=== PATIENT | female | born 1985 | race Caucasian/White ===

== ENCOUNTER 2016-08-18 18:56 | Emergency (ER) | payer OTHER ==
[2016-08-18] MEDS ORDERED: NS 0.9% 1000 ML* 1,000 ML IV ONE (19:34)
[2016-08-18 20:28] LABS: Hematocrit 36 % (35-47); Hemoglobin 11.5 g/dl (12.0-16.0); Mean Corpuscular HGB Conc 32 g/dl (31-36); Mean Corpuscular Hemoglobin 24 pg (27-31); Mean Corpuscular Volume 76 fL (80-97); Mean Platelet Volume 9 um3 (7.4-10.4); Red Blood Count 4.75 10^6/ul (4.0-5.4); Red Cell Distribution Width 14 % (10.5-15)
[2016-08-18] MEDS ORDERED: Butalb/Acetamin/Caff TAB* 1 TAB PO ONE (20:32)
[2016-08-18] MEDS ORDERED: SUMAtriptan SQ* 6 MG/0.5 ML VIAL SUBCUT ONE (20:32)
[2016-08-18] MEDS ORDERED: Ketorolac INJ* 30 MG/ML 1 ML VIAL IV ONE (20:32)
[2016-08-18] MEDS ORDERED: Ondansetron INJ* 2 MG/ML VIAL IV ONE (20:33)
[2016-08-18] MEDS ORDERED: cefTRIAXone(*) 2 GM in NS 0.9% 100 ML* 100 ML IVPB ONE (20:33)
[2016-08-18 20:40] LABS: Albumin 4.4 g/dL (3.2-5.2); BUN/Creatinine Ratio 15.5 (8-20); Calcium 9.5 mg/dL (8.6-10.3); EGFR African American 124.3 (>60); EGFR Non-African American 96.7 (>60); Globulin 3.7 g/dL (2-4); Potassium 3.6 mmol/L (3.5-5.0); Total Bilirubin 0.4 mg/dL (0.2-1.0); Total Protein 8.1 g/dL (6.4-8.9)
[2016-08-18] MEDS ORDERED: HYDROmorphone INJ* 1 MG/ML CARPUJECT SYRINGE ONE (20:53)
[2016-08-18] MEDS ORDERED: Dexamethasone IV* 4 MG in NS 0.9% 50 ML* 50 ML IVPB SCH (21:00)
[2016-08-18 21:12] LABS: EBV Response NO
[2016-08-18 21:18] LABS: Mono Internal Control QC Line Present
--- NOTE | 2016-08-18 22:49 | ED ---
Julianna Chawla Rebecca, scribed for John Collins MD on 08/18/16 at 2116 . Throat Pain/Nasal Congestion - HPI Summary HPI Summary: Pt is a 30 y/o F who presents to ED c/o throat pain and nasal congestion. Sx began 3 days ago and have been constant and worsening since onset. Pain is currently severe, ranked 8/10. Sx aggravated by swallowing, alleviated by nothing. Additionally c/o CORTEZ, fever, chills, lymphadenopthy, and nonproductive cough secondary to throat irritation. Denies chest congestion, V/D, and rash. PMHx migraines. Typically alleviated by Excedrin, which is not affecting sx this episode. Has treated with 2 doses of Excedrin today, with the last dose at 1500. SHx former smoker (quit 1 year ago). - History of Current Complaint Chief Complaint: EDUpperRespComplaint Time Seen by Provider: 08/18/16 19:34 Hx Obtained From: Patient Onset/Duration: Sudden Onset, Lasting Days - 3 days Associated Signs And Symptoms: Positive: Sinus Discomfort Cough: Nonproductive - Allergies/Home Medications Allergies/Adverse Reactions: Allergies Allergy/AdvReac Type Severity Reaction Status Date / Time Chocolate Allergy BUMPS ON Verified 05/01/15 17:25 SKIN PMH/Surg Hx/FS Hx/Imm Hx Endocrine/Hematology History: Reports: Hx Diabetes - on insulin, Hx Anemia - HX OF Denies: Hx Thyroid Disease Cardiovascular History: Denies: Hx Hypertension Respiratory History: Reports: Hx Sleep Apnea - ? WILL HAVE STUDY AFTER SURGERY Denies: Hx Asthma, Hx Chronic Obstructive Pulmonary Disease (COPD) GI History: Denies: Hx Ulcer History: Reports: Hx Kidney Stones - 2007 Sensory History: Denies: Hx Contacts or Glasses, Hx Hearing Aid Opthamlomology History: Denies: Hx Contacts or Glasses Neurological History: Reports: Hx Headaches - ALL THE TIME- TAKES TYLENOL FOR, Hx Migraine - HX OF Psychiatric History: Reports: Hx Anxiety - IN THE PAST, Hx Depression - IN THE PAST - Surgical History Surgery Procedure, Year, and Place: 2007 cholecystectomy. D&C. two abortions Hx Anesthesia Reactions: No - Immunization History Date of Tetanus Vaccine: unknown Date of Influenza Vaccine: never received Infectious Disease History: No Infectious Disease History: Denies: Hx Hepatitis, Hx Human Immunodeficiency Virus (HIV), Traveled Outside the [place] in Last 30 Days - Family History Known Family History: Negative: Cardiac Disease - Social History Alcohol Use: None Substance Use Type: Reports: None Smoking Status (MU): Former Smoker - Quit 1 year ago Type: Cigarettes Have You Smoked in the Last Year: Yes Review of Systems Positive: Fever, Chills Positive: Sore Throat, Other - Lymphadenopathy, nasal congestion Positive: Cough - nonproductive, secondary to throat irritation, Other - Deneis chest congestion Negative: Vomiting, Diarrhea Negative: Rash Positive: Headache All Other Systems Reviewed And Are Negative: Yes Physical Exam - Summary Physical Exam Summary: General: Obviously uncomfortable, pleasant, alert, currently has a CORTEZ. HEENT: Moist mucosa. Left TM pearly white, with no effusion. R TM no tragal or pinna tenderness. Purulent effusion on the right side of the throat. Uvula midline. No obvious abscess. Neck: There is right sided diffuse sub-mandibular and right neck tenderness with lymphadenopathy. They are not boggy, non-fluctuant. Heart: S1, S2, RRR, no murmurs, rubs, or gallops Lungs: Clear to auscultation, breathing comfortable, no wheezes or rales Abdominal: Soft, flat, nontender Extremities: No edema, no calf tenderness Neuro: Alert and oriented x 3 Psych: Logical, coherent Triage Information Reviewed: Yes Vital Signs On Initial Exam: Initial Vitals Temp Pulse Resp BP Pulse Ox 99.8 F 111 19 181/91 98 08/18/16 18:58 08/18/16 18:58 08/18/16 18:58 08/18/16 18:58 08/18/16 18:58 Vital Signs Reviewed: Yes Diagnostics - Vital Signs Vital Signs Temp Pulse Resp BP Pulse Ox 08/18/16 18:58 99.8 F 111 19 181/91 98 - Laboratory Lab Results: Lab Results 08/18/16 08/18/16 08/18/16 Range/Units 20:00 20:00 20:00 WBC 11.0 H (3.5-10.8) 10^3/ul RBC 4.75 (4.0-5.4) 10^6/ul Hgb 11.5 L (12.0-16.0) g/dl Hct 36 (35-47) % MCV 76 L (80-97) fL MCH 24 L (27-31) pg MCHC 32 (31-36) g/dl RDW 14 (10.5-15) % Plt Count 273 (150-450) 10^3/ul MPV 9 (7.4-10.4) um3 Neut % (Auto) 81.5 (38-83) % Lymph % (Auto) 10.1 L (25-47) % [place] % (Auto) 7.7 (1-9) % Eos % (Auto) 0.4 (0-6) % Baso % (Auto) 0.3 (0-2) % Absolute Neuts (auto) 9.0 H (1.5-7.7) 10^3/ul Absolute Lymphs (auto) 1.1 (1.0-4.8) 10^3/ul Absolute Monos (auto) 0.8 (0-0.8) 10^3/ul Absolute Eos (auto) 0 (0-0.6) 10^3/ul Absolute Basos (auto) 0 (0-0.2) 10^3/ul Absolute Nucleated RBC 0 10^3/ul Nucleated RBC % 0 Sodium 135 (133-145) mmol/L Potassium 3.6 (3.5-5.0) mmol/L Chloride 101 (101-111) mmol/L Carbon Dioxide 25 (22-32) mmol/L Anion Gap 9 (2-11) mmol/L BUN 11 (6-24) mg/dL Creatinine 0.71 (0.51-0.95) mg/dL Est GFR ( Amer) 124.3 (>60) Est GFR (Non-Af Amer) 96.7 (>60) BUN/Creatinine Ratio 15.5 (8-20) Glucose 120 H (70-100) mg/dL Lactic Acid 0.7 (0.5-2.0) mmol/L Calcium 9.5 (8.6-10.3) mg/dL Total Bilirubin 0.40 (0.2-1.0) mg/dL AST 12 L (13-39) U/L ALT 16 (7-52) U/L Alkaline Phosphatase 71 (34-104) U/L Troponin I 0.00 (<0.04) ng/mL B-Natriuretic Peptide ( - 100) pg/mL Total Protein 8.1 (6.4-8.9) g/dL Albumin 4.4 (3.2-5.2) g/dL Globulin 3.7 (2-4) g/dL Albumin/Globulin Ratio 1.2 (1-3) Monoscreen Pending 08/18/16 Range/Units 20:00 WBC (3.5-10.8) 10^3/ul RBC (4.0-5.4) 10^6/ul Hgb (12.0-16.0) g/dl Hct (35-47) % MCV (80-97) fL MCH (27-31) pg MCHC (31-36) g/dl RDW (10.5-15) % Plt Count (150-450) 10^3/ul MPV (7.4-10.4) um3 Neut % (Auto) (38-83) % Lymph % (Auto) (25-47) % [place] % (Auto) (1-9) % Eos % (Auto) (0-6) % Baso % (Auto) (0-2) % Absolute Neuts (auto) (1.5-7.7) 10^3/ul Absolute Lymphs (auto) (1.0-4.8) 10^3/ul Absolute Monos (auto) (0-0.8) 10^3/ul Absolute Eos (auto) (0-0.6) 10^3/ul Absolute Basos (auto) (0-0.2) 10^3/ul Absolute Nucleated RBC 10^3/ul Nucleated RBC % Sodium (133-145) mmol/L Potassium (3.5-5.0) mmol/L Chloride (101-111) mmol/L Carbon Dioxide (22-32) mmol/L Anion Gap (2-11) mmol/L BUN (6-24) mg/dL Creatinine (0.51-0.95) mg/dL Est GFR ( Amer) (>60) Est GFR (Non-Af Amer) (>60) BUN/Creatinine Ratio (8-20) Glucose (70-100) mg/dL Lactic Acid (0.5-2.0) mmol/L Calcium (8.6-10.3) mg/dL Total Bilirubin (0.2-1.0) mg/dL AST (13-39) U/L ALT (7-52) U/L Alkaline Phosphatase (34-104) U/L Troponin I (<0.04) ng/mL B-Natriuretic Peptide 67 ( - 100) pg/mL Total Protein (6.4-8.9) g/dL Albumin (3.2-5.2) g/dL Globulin (2-4) g/dL Albumin/Globulin Ratio (1-3) Monoscreen Result Diagrams: 08/18/16 20:00 08/18/16 20:00 Lab Statement: Any lab studies that have been ordered have been reviewed, and results considered in the medical decision making process. EENT Course/Dx - Course Assessment/Plan: She presents with 3 days of sore throat, congestion. On our exam, signs of a throat infection, possibly strep. She has a Hx of tonsillitis, but she has had her tonsils and adenoids removed. She has significantly adenopathy on the right side. We will add a [place] test. I dont see any dental abscess. There are no signs of Ludwigs angina. No signs of cellulitis or mastoiditis. This could very well be viral but given the exudate and adenopathy I think it is important that we prescribe Abx and steroids. She also has a significant CORTEZ, which we will treat aggressively. - Diagnoses Provider Diagnoses: Pharyngitis, Headache Discharge - Discharge Plan Condition: Fair Disposition: HOME Prescriptions: Amoxicillin/Clavulanate TAB* [Augmentin TAB 875*] 875 mg PO BID #20 tab Dexamethasone TAB* [Decadron TAB*] 4 mg PO BID #6 tab HYDROcodone/ACETAMIN 5-325 MG* [[place] 5-325 TAB*] 1 tab PO Q6H PRN #12 tab MDD 4 PRN Reason: Pain Patient Education Materials: Pharyngitis (ED), General Headache (ED) Referrals: Julito Amezquita MD [Primary Care Provider] - 1 Day The documentation as recorded by the Julianna saeed Rebecca accurately reflects the service I personally performed and the decisions made by me, John Collins MD.
[2016-08-19 03:25] VITALS: BP 117/73
== END 2016-08-18 22:30 | disposition home or self-care (01) ==
LOC: ED 18:56
DX: R51 Headache (principal); J02.9 Acute pharyngitis, unspecified; Z87.891 Personal history of nicotine dependence; E11.9 Type 2 diabetes mellitus without complications
CPT/HCPCS: 36415; 80053; 83605; 83880; 84484; 85025; 86308; 87040; 96360; 96372; 96374; 96375; 99283; A9270-GY; J0696; J1100; J1170; J1885; J2405; J3030

== ENCOUNTER 2018-06-14 18:44 | Observation (INO) | payer OTHER ==
[2018-06-14] MEDS ORDERED: NS 0.9% 1000 ML* 1,000 ML IV ONE ×2 (19:12→20:49)
[2018-06-14] MEDS ORDERED: Ondansetron INJ* 2 MG/ML VIAL IV ONE (19:12)
[2018-06-14] MEDS ORDERED: Ketorolac INJ* 30 MG/ML 1 ML VIAL IV PUSH ONE (19:42)
[2018-06-14 20:13] LABS: Hematocrit 36 % (35-47); Hemoglobin 11.6 g/dl (12.0-16.0); Mean Corpuscular HGB Conc 32 g/dl (31-36); Mean Corpuscular Hemoglobin 24 pg (27-31); Mean Corpuscular Volume 75 fL (80-97); Platelet Count 106 10^3/ul (150-450); Red Blood Count 4.81 10^6/ul (4.00-5.40); Red Cell Distribution Width 15 % (10.5-15); White Blood Count 1.4 10^3/ul (3.5-10.8)
[2018-06-14 20:32] LABS: EGFR Non-African American 58.8 (>60)
[2018-06-14] MEDS ORDERED: Potassium Chlor TAB* 20 MEQ TAB.ER PO ONE (20:49)
[2018-06-14 21:00] LABS: Monocytes % 2 %
[2018-06-14 21:06] LABS: ABS Neutrophils 1.1 10^3/ul (1.5-7.7)
[2018-06-14 22:00] LABS: Urine Appearance Cloudy; Urine Blood 2+ (Negative); Urine Color Yellow; Urine Ketones Trace (Negative); Urine Protein 1+(30 mg/dL) (Negative); Urine Red Blood Cell 1+(3-5/hpf) (Absent); Urine Specific Gravity 1.023 (1.010-1.030); Urine Urobilinogen Negative (Negative); Urine White Blood Cell 2+(11-20/hpf) (Absent)
[2018-06-14 22:01] LABS: Immature Retic Fraction 0.29; RBC Retic Count 4.84 10^6/ul (4.6-6.2)
[2018-06-14 22:06] LABS: Corrected Retic Count 0.4 % (0.5-1.5); Hematocrit for Retic CNT 36 % (35-47)
[2018-06-14] MEDS ORDERED: cefTRIAXone(*) 1 GM in NS 0.9% 50 ML* 50 ML IVPB ONE (23:13)
[2018-06-15] MEDS ORDERED: Acetaminophen TAB* 325 MG PO ONE (00:28)
[2018-06-15] MEDS ORDERED: Lidocaine 2% EPI 1:200000 MPF*10-20 ML VIAL ONE (01:13)
[2018-06-15] MEDS ORDERED: cefTRIAXone(*) 1 GM in NS 0.9% 50 ML* 50 ML IVPB ONE (01:15)
[2018-06-15] MEDS ORDERED: Vancomycin(*) 1,000 MG in NS 0.9% 250 ML* 250 ML IVPB ONE (01:16)
[2018-06-15] MEDS ORDERED: Dextrose 50% Syringe 50 ML* 25 GM/50 ML SYRINGE IV PUSH PRN (01:19)
[2018-06-15] MEDS ORDERED: oxyCODONE/Acetamin 5/325 MG* TAB PO PRN (01:33)
[2018-06-15] MEDS ORDERED: Al Hydrox/Mg Hydrox/Simet LIQ* 30 ML UDC PO PRN (01:33)
[2018-06-15] MEDS ORDERED: Acetaminophen TAB* 325 MG PO PRN (01:33)
[2018-06-15] MEDS ORDERED: NS 0.9% 1000 ML* 1,000 ML IV ONE (02:00)
--- NOTE | 2018-06-15 02:10 | PN ---
Progress Note - Progress Note Date of Service: 06/15/18 Note: I performed a spinal tap for the PA Dom Gross. Informed consent. Tap was performed in sitting position. The patient was given lidocaine 2% for local anesthesia. We did use 20 gauge spinal and entered in L4-L5 4 tubes of clear CSF obtained. Procedure tolerated well.
[2018-06-15 02:29] LABS: Body Fluid Source Cerebral Spinal
--- NOTE | 2018-06-15 02:42 | ED ---
Influenza-Like Illness - HPI Summary HPI Summary: Patient complains of flulike symptoms including chills, N/V/D, body aches, frontal headache, neck stiffness, subjective fever 4 days. Denies CP, cough, sore throat, ear pain, nasal congestion, CP, SOB, abdominal pain, change in urine, change in BM, vaginal symptoms, . Medical history is DM 2. Patient states she has not been taking her metformin for 2 weeks, and has been unable to check her blood sugar as glucometer no longer functioning. - History of Current Complaint Chief Complaint: EDFluSymptoms Time Seen by Provider: 06/14/18 19:09 Hx Obtained From: Patient Onset/Duration: Gradual Onset Severity: Moderate Associated Signs & Symptoms: Fever, Myalgia, Cough, Headache, Vomiting, Diarrhea - Allergy/Home Medications Allergies/Adverse Reactions: Allergies Allergy/AdvReac Type Severity Reaction Status Date / Time No Known Allergies Allergy Verified 06/14/18 19:06 PMH/Surg Hx/FS Hx/Imm Hx Endocrine/Hematology History: Reports: Hx Diabetes - on insulin, Hx Anemia - HX OF Denies: Hx Thyroid Disease Cardiovascular History: Denies: Hx Hypertension Respiratory History: Reports: Hx Sleep Apnea - ? WILL HAVE STUDY AFTER SURGERY Denies: Hx Asthma, Hx Chronic Obstructive Pulmonary Disease (COPD) GI History: Denies: Hx Ulcer History: Reports: Hx Kidney Stones - 2007 Sensory History: Denies: Hx Contacts or Glasses, Hx Hearing Aid Opthamlomology History: Denies: Hx Contacts or Glasses Neurological History: Reports: Hx Headaches - ALL THE TIME- TAKES TYLENOL FOR, Hx Migraine - HX OF Psychiatric History: Reports: Hx Anxiety - IN THE PAST, Hx Depression - IN THE PAST - Surgical History Surgery Procedure, Year, and Place: 2007 cholecystectomy. D&C. two abortions Hx Anesthesia Reactions: No - Immunization History Date of Tetanus Vaccine: unknown Date of Influenza Vaccine: never received Infectious Disease History: No Infectious Disease History: Denies: Hx Hepatitis, Hx Human Immunodeficiency Virus (HIV), Traveled Outside the [place] in Last 30 Days - Family History Known Family History: Negative: Cardiac Disease - Social History Alcohol Use: None Substance Use Type: Reports: None Substance Use Comment - Amount & Last Used: MARIJUANNA USE- LAST A COUPLE OF WEEKS AGO Hx Tobacco Use: Yes Smoking Status (MU): Light Every Day Tobacco Smoker Type: Cigarettes Amount Used/How Often: 1/2 PPD X 14 YEARS Have You Smoked in the Last Year: Yes Review of Systems Positive: Fever, Chills Eyes: Negative ENT: Negative Cardiovascular: Negative Respiratory: Negative Positive: Vomiting, Diarrhea, Nausea Genitourinary: Negative Positive: Myalgia Skin: Negative Positive: Headache Psychological: Normal All Other Systems Reviewed And Are Negative: Yes Physical Exam - Summary Physical Exam Summary: Negative Kernig's and Brudzinski. Neuro exam normal. Physical exam otherwise unremarkable. Triage Information Reviewed: Yes Vital Signs On Initial Exam: Initial Vitals Temp Pulse Resp BP Pulse Ox 99.8 F 86 21 112/62 94 06/14/18 19:00 06/14/18 19:00 06/14/18 19:00 06/14/18 19:00 06/14/18 19:00 Vital Signs Reviewed: Yes Appearance: Positive: Well-Appearing Skin: Positive: Warm Head/Face: Positive: Normal Head/Face Inspection Eyes: Positive: Normal ENT: Positive: Normal ENT inspection Neck: Positive: Supple Respiratory/Lung Sounds: Positive: Clear to Auscultation Cardiovascular: Positive: Normal Abdomen Description: Positive: Nontender Musculoskeletal: Positive: Normal Neurological: Positive: Normal Psychiatric: Positive: Normal AVPU Assessment: Alert - Maia Coma Scale Best Eye Response: 4 - Spontaneous Best Motor Response: 6 - Obeys Commands Best Verbal Response: 5 - Oriented Coma Scale Total: 15 Diagnostics - Vital Signs Vital Signs Temp Pulse Resp BP Pulse Ox 06/15/18 02:12 73 18 128/70 94 06/15/18 02:01 72 25 108/43 93 06/15/18 02:00 74 18 90 06/15/18 01:57 75 25 109/49 91 06/15/18 01:42 20 06/15/18 01:40 85 23 96 06/15/18 00:32 87 32 110/66 96 06/15/18 00:01 73 19 100/57 94 06/15/18 00:00 77 13 94 06/14/18 23:31 77 27 117/62 97 06/14/18 23:19 99.9 F 06/14/18 23:07 80 16 95 06/14/18 23:01 79 17 118/67 96 06/14/18 23:00 75 15 97 12/04/18 22:31 77 19 106/75 95 06/14/18 22:01 15 105/53 06/14/18 22:00 23 06/14/18 21:42 100.8 F 06/14/18 21:31 16 123/65 06/14/18 21:01 26 133/65 06/14/18 21:00 20 06/14/18 20:55 100.4 F 20 112/67 06/14/18 20:01 20 104/66 06/14/18 20:00 19 06/14/18 19:31 82 23 102/70 96 06/14/18 19:01 88 21 112/62 94 06/14/18 19:00 99.8 F 85 17 112/62 95 - Laboratory Lab Results: Lab Results 06/14/18 06/14/18 06/14/18 Range/Units 19:44 19:44 19:44 WBC 1.4 L (3.5-10.8) 10^3/ul RBC 4.81 (4.00-5.40) 10^6/ul RBC (Retic) 4.84 (4.6-6.2) 10^6/ul Hgb 11.6 L (12.0-16.0) g/dl Hct 36 (35-47) % HCT (Retic) 36 (35-47) % MCV 75 L (80-97) fL MCH 24 L (27-31) pg MCHC 32 (31-36) g/dl RDW 15 (10.5-15) % Plt Count 106 L (150-450) 10^3/ul MPV 9.0 (7.4-10.4) fL Neut % (Auto) Not Reportable Lymph % (Auto) Not Reportable [place] % (Auto) Not Reportable Eos % (Auto) Not Reportable Baso % (Auto) Not Reportable Absolute Neuts (auto) Not Reportable Absolute Lymphs (auto) Not Reportable Absolute Monos (auto) Not Reportable Absolute Eos (auto) Not Reportable Absolute Basos (auto) Not Reportable Absolute Nucleated RBC Not Reportable Immature Gran % 29 H (0-9) % Neutrophils % 46 % Band Neutrophils % 29 H (0-8) % Lymphocytes % 22 % Reactive Lymphs % 1 (0-6) % Monocytes % 2 % Nucleated RBC % Not Reportable Abs Neuts (Manual) 1.1 L (1.5-7.7) 10^3/ul Abs Lymphs (Manual) 0.3 L (1.0-4.8) 10^3/ul Normal RBC Morphology Normal (Normal) Retic Count, Calc 0.5 (0.5-1.5) % Corrected Retic Count 0.4 L (0.5-1.5) % Retic Shift Factor 1.5 Retic Production Index 0.30 Immature Retic Fraction 0.29 Mean Retic Volume 92.5 Hem Pathologist Commnt Pending VBG pH (7.33-7.43) VBG pCO2 (41-51) mmHg VBG pO2 (35-45) mmHg VBG HCO3 (24-28) mmol/L VBG O2 Saturation (70-80) % VBG Base Excess (0-4) Sodium 137 (135-145) mmol/L Potassium 3.1 L (3.5-5.0) mmol/L Chloride 105 (101-111) mmol/L Carbon Dioxide 22 (22-32) mmol/L Anion Gap 10 (2-11) mmol/L BUN 18 (6-24) mg/dL Creatinine 1.08 H (0.51-0.95) mg/dL Est GFR ( Amer) 71.1 (>60) Est GFR (Non-Af Amer) 58.8 (>60) BUN/Creatinine Ratio 16.7 (8-20) Glucose 116 H (70-100) mg/dL Lactic Acid 0.8 (0.5-2.0) mmol/L Calcium 8.5 L (8.6-10.3) mg/dL Total Bilirubin 0.30 (0.2-1.0) mg/dL AST 56 H (13-39) U/L ALT 41 (7-52) U/L Alkaline Phosphatase 46 (34-104) U/L C-Reactive Protein 4.93 (<8.01) mg/L Total Protein 7.0 (6.4-8.9) g/dL Albumin 4.0 (3.2-5.2) g/dL Globulin 3.0 (2-4) g/dL Albumin/Globulin Ratio 1.3 (1-3) Beta HCG, Quant < 0.60 mIU/mL Urine Color Urine Appearance Urine pH (5-9) Ur Specific [place] (1.010-1.030) Urine Protein (Negative) Urine Ketones (Negative) Urine Blood (Negative) Urine Nitrate (Negative) Urine Bilirubin (Negative) Urine Urobilinogen (Negative) Ur Leukocyte Esterase (Negative) Urine WBC (Auto) (Absent) Urine RBC (Auto) (Absent) Ur Squamous Epith Cells (Absent) Urine Bacteria (Absent) Hyaline Casts (Absent) Granular Casts (Absent) Urine Glucose (Negative) Monoscreen Negative (Negative) Influenza A (Rapid) (Negative) Influenza B (Rapid) (Negative) 06/14/18 06/14/18 06/14/18 Range/Units 19:59 21:03 21:28 WBC (3.5-10.8) 10^3/ul RBC (4.00-5.40) 10^6/ul RBC (Retic) (4.6-6.2) 10^6/ul Hgb (12.0-16.0) g/dl Hct (35-47) % HCT (Retic) (35-47) % MCV (80-97) fL MCH (27-31) pg MCHC (31-36) g/dl RDW (10.5-15) % Plt Count (150-450) 10^3/ul MPV (7.4-10.4) fL Neut % (Auto) Lymph % (Auto) [place] % (Auto) Eos % (Auto) Baso % (Auto) Absolute Neuts (auto) Absolute Lymphs (auto) Absolute Monos (auto) Absolute Eos (auto) Absolute Basos (auto) Absolute Nucleated RBC Immature Gran % (0-9) % Neutrophils % % Band Neutrophils % (0-8) % Lymphocytes % % Reactive Lymphs % (0-6) % Monocytes % % Nucleated RBC % Abs Neuts (Manual) (1.5-7.7) 10^3/ul Abs Lymphs (Manual) (1.0-4.8) 10^3/ul Normal RBC Morphology (Normal) Retic Count, Calc (0.5-1.5) % Corrected Retic Count (0.5-1.5) % Retic Shift Factor Retic Production Index Immature Retic Fraction Mean Retic Volume Hem Pathologist Commnt VBG pH 7.42 (7.33-7.43) VBG pCO2 35 L (41-51) mmHg VBG pO2 42 (35-45) mmHg VBG HCO3 23.4 L (24-28) mmol/L VBG O2 Saturation 77.0 (70-80) % VBG Base Excess -1.3 L (0-4) Sodium (135-145) mmol/L Potassium (3.5-5.0) mmol/L Chloride (101-111) mmol/L Carbon Dioxide (22-32) mmol/L Anion Gap (2-11) mmol/L BUN (6-24) mg/dL Creatinine (0.51-0.95) mg/dL Est GFR ( Amer) (>60) Est GFR (Non-Af Amer) (>60) BUN/Creatinine Ratio (8-20) Glucose (70-100) mg/dL Lactic Acid (0.5-2.0) mmol/L Calcium (8.6-10.3) mg/dL Total Bilirubin (0.2-1.0) mg/dL AST (13-39) U/L ALT (7-52) U/L Alkaline Phosphatase (34-104) U/L C-Reactive Protein (<8.01) mg/L Total Protein (6.4-8.9) g/dL Albumin (3.2-5.2) g/dL Globulin (2-4) g/dL Albumin/Globulin Ratio (1-3) Beta HCG, Quant mIU/mL Urine Color Yellow Urine Appearance Cloudy Urine pH 5.0 (5-9) Ur Specific [place] 1.023 (1.010-1.030) Urine Protein 1+(30 mg/dl) A (Negative) Urine Ketones Trace A (Negative) Urine Blood 2+ A (Negative) Urine Nitrate Negative (Negative) Urine Bilirubin Negative (Negative) Urine Urobilinogen Negative (Negative) Ur Leukocyte Esterase 2+ A (Negative) Urine WBC (Auto) 2+(11-20/hpf) A (Absent) Urine RBC (Auto) 1+(3-5/hpf) A (Absent) Ur Squamous Epith Cells Present A (Absent) Urine Bacteria 1+ A (Absent) Hyaline Casts Present A (Absent) Granular Casts Present A (Absent) Urine Glucose Negative (Negative) Monoscreen (Negative) Influenza A (Rapid) Negative (Negative) Influenza B (Rapid) Negative (Negative) Result Diagrams: 06/14/18 19:44 06/14/18 19:44 Lab Statement: Any lab studies that have been ordered have been reviewed, and results considered in the medical decision making process. Flu Symptom Course/Dx - Course Course Of Treatment: Patient complains of flulike symptoms including chills, N/V /D, body aches, frontal headache, neck stiffness, subjective fever 4 days. Denies CP, cough, sore throat, ear pain, nasal congestion, CP, SOB, abdominal pain, change in urine, change in BM, vaginal symptoms, . Medical history is DM 2. Patient states she has not been taking her metformin for 2 weeks, and has been unable to check her blood sugar as glucometer no longer functioning. Physical exam:Negative Kernig's and Brudzinski. Neuro exam normal. Physical exam otherwise unremarkable. Fever to 100.8, vital signs otherwise unremarkable. White count 1.4. Platelet count 106. Absolute neutrophil count 1.1. Corrected reticulocyte count 0.4. Borderline neutropenic. Creatinine 1.08. Chest x-ray negative. Positive for UTI. Patient given 2 L of normal saline. 1 g Rocephin. Admitted to the hospitalist - Diagnoses Provider Diagnoses: Flu-like symptoms, Neutropenia, UTI (urinary tract infection) Discharge - Sign-Out/Discharge Documenting (check all that apply): Patient Departure - Discharge Plan Condition: Stable Disposition: ADMITTED TO [facility] Referrals: Julito Amezquita MD [Primary Care Provider] - - Billing Disposition and Condition Condition: STABLE Disposition: Admitted to [facility]
[2018-06-15] MEDS ORDERED: Acyclovir IV(*) 600 MG in NS 0.9% 100 ML* 100 ML IVPB SCH ×2 (03:00→05:30)
[2018-06-15] MEDS: Ondansetron INJ* 2 MG/ML VIAL IV PRN ×3 (03:42→15:59)
[2018-06-15] MEDS: NS 0.9% 1000 ML* 1,000 ML IV SCH (03:45)
[2018-06-15] MEDS ORDERED: Vancomycin(*) 1,000 MG in NS 0.9% 250 ML* 250 ML IVPB SCH (04:00)
[2018-06-15 07:35] LABS: EGFR Non-African American 73.5 (>60)
--- NOTE | 2018-06-15 07:47 | HP ---
HISTORY AND PHYSICAL: DATE OF ADMISSION: 06/15/18 TIME OF EVALUATION: 0100. The patient does not have a primary care physician. CHIEF COMPLAINT: Nausea, vomiting, fever, and headache. HISTORY OF PRESENT ILLNESS: This is a 32-year-old female with a past medical history of diabetes who presents to the emergency room after having 4 to 5 days of nausea, vomiting, watery diarrhea, fever, and headache. She developed the epigastric pain after she has been persistently vomiting. She has been unable to keep anything down. She is trying to tolerate ice chips at this time. She has a frontal headache and a significant neck pain, unable to flex her neck. She states her whole body hurts including her gums are swollen. She has had a mild cough, no congestion. She states subjective fever at home with chills. No urinary symptoms. No rash. No sick contacts. She denies any tick bite exposure. She states she is not outside very often at all. There is no recent travel, no recent antibiotic use. She does state she has a recent cold sore on her lip that is now resolving. Otherwise, review of systems is negative. In emergency room, the patient had labs and imaging. She was given a gram of ceftriaxone, 2 L of fluid, potassium chloride, and Toradol and referred to the hospitalist service for further evaluation. PAST MEDICAL HISTORY: 1. Diabetes. 2. GERD. 3. Anxiety. MEDICATIONS: 1. Metformin 500 mg p.o. b.i.d. 2. Citalopram unsure of dose daily. 3. Omeprazole 20 mg daily. 4. Vitamin D daily. ALLERGIES: No known drug allergies. FAMILY HISTORY: Mother is still alive; she does have diabetes and hypertension. Father from an overdose. SOCIAL HISTORY: The patient stays at home. She is a single mom. She has 3 children. Her 3-year-old is disabled, which makes it hard for her to get to her primary care physician office, which they have since fired her. She smokes 5 cigarettes per day off and on for several years. No alcohol or illicit drug use. Her healthcare proxy is her mother and her sister. Code status is full code. REVIEW OF SYSTEMS: A 14-point review of systems as mentioned in the HPI, otherwise negative. PHYSICAL EXAMINATION GENERAL: Mildly ill-appearing, sitting up in the bed. VITALS: T-max 100.8, pulse rate of 77, respiratory rate 19, oxygen saturation 94% on room air, blood pressure 100/54. HEENT: Head normocephalic. Pupils are equal and reactive. Conjunctivae mildly injected. Oropharynx: Mucous membranes are dry. NECK: Supple. No appreciative adenopathy. She does have nuchal rigidity and tenderness of her posterior neck and resists to neck flexion. RESPIRATORY: Diminished breath sounds. No wheezes, rhonchi, or rales. CARDIAC: Regular rate and rhythm. Systolic murmur most prominent to the left sternal base. ABDOMEN: Soft, nontender, nondistended. EXTREMITIES: No clubbing, cyanosis, or edema. +1 DPs. NEUROLOGIC: Alert and oriented x3. No gross focal neurologic deficits. DERM: She does have a faint blanching maculopapular rash on the upper posterior torso. LABORATORY DATA: White count 1.4, hemoglobin 11.6, hematocrit 36, platelets 106. She has 29% immature granulocytes, 29% bands. Sodium 137, potassium 3.1, chloride 105, bicarb 22, BUN 18, creatinine 1.08. AST of 56. Lactic acid 0.8. Urinalysis shows +1 protein, trace ketones, +2 blood, squamous cells are present. Flu is negative. RADIOGRAPHIC DATA: Some mildly prominent perihilar markings on wet read. ASSESSMENT: This is a 32-year-old female with past medical history of diabetes who presents to the emergency room with nausea, vomiting, diarrhea, fever and neck pain. 1. The patient is moderately ill-appearing with nuchal rigidity in the setting of fever, bandemia, and immature granulocytes and pancytopenic. I am concerned for meningitis, could be viral meningitis, or herpes simplex virus encephalitis. Concerning for a viral process for her pancytopenia. Plan: We will talk to the ER about obtaining an LP. With her nausea and vomiting, I am going to order a head CT first, going to add another gram of ceftriaxone, start her on vancomycin and acyclovir until her LP comes back. Going to have them send for HSV. We will add on serum as well as HIV , EBV, and CMV titers as well as a Monospot. Continue IV fluids and antibiotics. Follow up on cultures. Consider ID consultation. 2. Pancytopenic patient with also bandemia, immature granulocytes, and mild neutropenia could be all related to an infectious etiology. Plan: We will repeat her labs in the morning, recommend pathology to review the smear, and consider hematology consultation if no improvement in her lab workup. CHRONIC MEDICAL PROBLEMS: 1. Diabetes. Placed on lispro and hold her metformin. 2. Depression and anxiety. Continue citalopram at the low dose as we do not know her dose. 3. Gastroesophageal reflux disease. Continue her omeprazole. 4. Fluids, electrolytes, nutrition: Place her on a regular diet and IV fluids. 5. DVT prophylaxis: The patient scores low risk. We will encourage ambulation. TIME SPENT: Greater than 45 minutes spent doing the history and physical and the half the time spent in direct patient contact. [id number]/[facility] #: [id number] BISHOP
[2018-06-15] MEDS: PROCHLORPERAZINE INJ 5 MG/ML 2 ML VIAL IV PRN ×3 (08:04→20:39)
[2018-06-15] MEDS: Ketorolac INJ* 15 MG/ML 1 ML VIAL IV PUSH PRN ×2 (08:04→10:10)
[2018-06-15 08:43] LABS: ABS Basophils 0 10^3/ul (0-0.2); ABS Eosinophils 0 10^3/ul (0-0.6); ABS Lymphocytes 0.4 10^3/ul (1.0-4.8); ABS Monocytes 0.1 10^3/ul (0-0.8); ABS Neutrophils 0.6 10^3/ul (1.5-7.7); ABS Nucleated RBC 0 10^3/ul; Eosinophil % 0 %; Hematocrit 33 % (35-47); Hemoglobin 10.8 g/dl (12.0-16.0); Lymphocyte % 38.4 %; Mean Corpuscular HGB Conc 33 g/dl (31-36); Mean Corpuscular Hemoglobin 24 pg (27-31); Mean Corpuscular Volume 74 fL (80-97); Mean Platelet Volume 9.1 fL (7.4-10.4); Nucleated Red Blood Cells % 0.6; Platelet Count 75 10^3/ul (150-450); Red Blood Count 4.43 10^6/ul (4.00-5.40); Red Cell Distribution Width 15 % (10.5-15)
[2018-06-15] MEDS: Insulin LISPRO* 1 UNITS UNIT SUBCUT SCH ×3 (09:56→17:56)
[2018-06-15] MEDS: Citalopram TAB* 10 MG PO SCH (09:57)
[2018-06-15] MEDS: Omeprazole CAP* 20 MG PO SCH (09:57)
[2018-06-15] MEDS ORDERED: cefTRIAXone(*) 1 GM in NS 0.9% 50 ML* 50 ML IVPB SCH (13:00)
[2018-06-15] MEDS ORDERED: cefTRIAXone(*) 2 GM in NS 0.9% 100 ML* 100 ML IVPB SCH (13:00)
--- NOTE | 2018-06-15 14:27 | PN ---
Subjective Date of Service: 06/15/18 Interval History: Pt still with headache and severe nausea and generalized dyspepsia. She says the torodol does help her headache, but it wears off. She says her stomach is growling and she would like to try eating some crackers. Her neck pain has improved and her diarrhea has resolved. Denies chest pain, shortness of breath, flank pain, dysuria, urinary frequency. Objective Active Medications: Acetaminophen (Tylenol Tab*) 650 mg PO Q4H PRN PRN Reason: FEVER/PAIN Al Hydrox/Mg Hydrox/Simethicone (Maalox Plus*) 30 ml PO Q6H PRN PRN Reason: INDIGESTION Citalopram Hydrobromide (Celexa Tab*) 10 mg PO DAILY [facility] Last Admin: 06/15/18 09:57 Dose: Not Given Dextrose (D50w Syringe 50 Ml*) 12.5 gm IV PUSH .FOR FS < 60 - SS PRN PRN Reason: FS < 60 Sodium Chloride (Ns 0.9% 1000 Ml*) 1,000 mls @ 150 mls/hr IV PER RATE [facility] Last Admin: 06/15/18 03:45 Dose: 150 mls/hr Ceftriaxone Sodium 1 gm/ (Sodium Chloride) 50 mls @ 200 mls/hr IVPB Q24H [facility] Last Admin: 06/15/18 14:00 Dose: 200 mls/hr Insulin Human Lispro (Humalog*) 0 units [facility]; Protocol Last Admin: 06/15/18 13:21 Dose: Not Given Ketorolac Tromethamine (Toradol Inj*) 30 mg IV PUSH Q6H PRN PRN Reason: PAIN Omeprazole (Prilosec Cap*) 20 mg PO 0730 [facility] Last Admin: 06/15/18 09:57 Dose: Not Given Ondansetron HCl (Zofran Inj*) 4 mg IV Q4H PRN PRN Reason: NAUSEA/VOMITING Last Admin: 06/15/18 10:10 Dose: 4 mg Oxycodone/Acetaminophen (Percocet 5/325 Tab*) 1 tab PO Q4H PRN PRN Reason: Pain Last Admin: 06/15/18 03:42 Dose: 1 tab Prochlorperazine Edisylate (Compazine Inj*) 5 mg IV Q6H PRN PRN Reason: NAUSEA/VOMITING Last Admin: 06/15/18 14:00 Dose: 5 mg Vital Signs - 8 hr 06/15/18 06/15/18 08:00 11:43 Temperature 98.2 F 99.0 F Pulse Rate 86 70 Respiratory 20 18 Rate Blood Pressure 135/68 122/64 (mmHg) O2 Sat by Pulse 96 93 Oximetry Oxygen Devices in Use Now: None Eyes: No Scleral Icterus Ears/Nose/Mouth/Throat: NL Teeth, Lips, Gums, Mucous Membranes Moist Neck: NL Appearance and Movements; NL JVP, Trachea Midline Respiratory: Symmetrical Chest Expansion and Respiratory Effort, Clear to Auscultation Cardiovascular: NL Sounds; No Murmurs; No JVD, RRR, No Edema Abdominal: NL Sounds; No Tenderness; No Distention Extremities: No Edema, No Clubbing, Cyanosis Skin: No Rash or Ulcers Neurological: Alert and Oriented x 3 Lines/Tubes/Other Access: Clean, Dry and Intact Peripheral IV Result Diagrams: 06/15/18 06:18 06/15/18 06:18 Additional Lab and Data: Lab Results 06/14/18 06/14/18 06/14/18 Range/Units 19:44 19:44 19:44 WBC 1.4 L (3.5-10.8) 10^3/ul RBC 4.81 (4.00-5.40) 10^6/ul RBC (Retic) 4.84 (4.6-6.2) 10^6/ul Hgb 11.6 L (12.0-16.0) g/dl Hct 36 (35-47) % HCT (Retic) 36 (35-47) % MCV 75 L (80-97) fL MCH 24 L (27-31) pg MCHC 32 (31-36) g/dl RDW 15 (10.5-15) % Plt Count 106 L (150-450) 10^3/ul MPV 9.0 (7.4-10.4) fL Neut % (Auto) Not Reportable Lymph % (Auto) Not Reportable Milam % (Auto) Not Reportable Eos % (Auto) Not Reportable Baso % (Auto) Not Reportable Absolute Neuts (auto) Not Reportable Absolute Lymphs (auto) Not Reportable Absolute Monos (auto) Not Reportable Absolute Eos (auto) Not Reportable Absolute Basos (auto) Not Reportable Absolute Nucleated RBC Not Reportable Immature Gran % 29 H (0-9) % Neutrophils % 46 % Band Neutrophils % 29 H (0-8) % Lymphocytes % 22 % Reactive Lymphs % 1 (0-6) % Monocytes % 2 % Nucleated RBC % Not Reportable Abs Neuts (Manual) 1.1 L (1.5-7.7) 10^3/ul Abs Lymphs (Manual) 0.3 L (1.0-4.8) 10^3/ul Normal RBC Morphology Normal (Normal) Retic Count, Calc 0.5 (0.5-1.5) % Corrected Retic Count 0.4 L (0.5-1.5) % Retic Shift Factor 1.5 Retic Production Index 0.30 Immature Retic Fraction 0.29 Mean Retic Volume 92.5 Hem Pathologist Commnt Pending VBG pH (7.33-7.43) VBG pCO2 (41-51) mmHg VBG pO2 (35-45) mmHg VBG HCO3 (24-28) mmol/L VBG O2 Saturation (70-80) % VBG Base Excess (0-4) Sodium 137 (135-145) mmol/L Potassium 3.1 L (3.5-5.0) mmol/L Chloride 105 (101-111) mmol/L Carbon Dioxide 22 (22-32) mmol/L Anion Gap 10 (2-11) mmol/L BUN 18 (6-24) mg/dL Creatinine 1.08 H (0.51-0.95) mg/dL Est GFR ( Amer) 71.1 (>60) Est GFR (Non-Af Amer) 58.8 (>60) BUN/Creatinine Ratio 16.7 (8-20) Glucose 116 H (70-100) mg/dL Lactic Acid 0.8 (0.5-2.0) mmol/L Calcium 8.5 L (8.6-10.3) mg/dL Total Bilirubin 0.30 (0.2-1.0) mg/dL AST 56 H (13-39) U/L ALT 41 (7-52) U/L Alkaline Phosphatase 46 (34-104) U/L C-Reactive Protein 4.93 (<8.01) mg/L Total Protein 7.0 (6.4-8.9) g/dL Albumin 4.0 (3.2-5.2) g/dL Globulin 3.0 (2-4) g/dL Albumin/Globulin Ratio 1.3 (1-3) Beta HCG, Quant < 0.60 mIU/mL Urine Color Urine Appearance Urine pH (5-9) Ur Specific Ragland (1.010-1.030) Urine Protein (Negative) Urine Ketones (Negative) Urine Blood (Negative) Urine Nitrate (Negative) Urine Bilirubin (Negative) Urine Urobilinogen (Negative) Ur Leukocyte Esterase (Negative) Urine WBC (Auto) (Absent) Urine RBC (Auto) (Absent) Ur Squamous Epith Cells (Absent) Urine Bacteria (Absent) Hyaline Casts (Absent) Granular Casts (Absent) Urine Glucose (Negative) Monoscreen Negative (Negative) Influenza A (Rapid) (Negative) Influenza B (Rapid) (Negative) 06/14/18 06/14/18 06/14/18 Range/Units 19:59 21:03 21:28 WBC (3.5-10.8) 10^3/ul RBC (4.00-5.40) 10^6/ul RBC (Retic) (4.6-6.2) 10^6/ul Hgb (12.0-16.0) g/dl Hct (35-47) % HCT (Retic) (35-47) % MCV (80-97) fL MCH (27-31) pg MCHC (31-36) g/dl RDW (10.5-15) % Plt Count (150-450) 10^3/ul MPV (7.4-10.4) fL Neut % (Auto) Lymph % (Auto) Milam % (Auto) Eos % (Auto) Baso % (Auto) Absolute Neuts (auto) Absolute Lymphs (auto) Absolute Monos (auto) Absolute Eos (auto) Absolute Basos (auto) Absolute Nucleated RBC Immature Gran % (0-9) % Neutrophils % % Band Neutrophils % (0-8) % Lymphocytes % % Reactive Lymphs % (0-6) % Monocytes % % Nucleated RBC % Abs Neuts (Manual) (1.5-7.7) 10^3/ul Abs Lymphs (Manual) (1.0-4.8) 10^3/ul Normal RBC Morphology (Normal) Retic Count, Calc (0.5-1.5) % Corrected Retic Count (0.5-1.5) % Retic Shift Factor Retic Production Index Immature Retic Fraction Mean Retic Volume Hem Pathologist Commnt VBG pH 7.42 (7.33-7.43) VBG pCO2 35 L (41-51) mmHg VBG pO2 42 (35-45) mmHg VBG HCO3 23.4 L (24-28) mmol/L VBG O2 Saturation 77.0 (70-80) % VBG Base Excess -1.3 L (0-4) Sodium (135-145) mmol/L Potassium (3.5-5.0) mmol/L Chloride (101-111) mmol/L Carbon Dioxide (22-32) mmol/L Anion Gap (2-11) mmol/L BUN (6-24) mg/dL Creatinine (0.51-0.95) mg/dL Est GFR ( Amer) (>60) Est GFR (Non-Af Amer) (>60) BUN/Creatinine Ratio (8-20) Glucose (70-100) mg/dL Lactic Acid (0.5-2.0) mmol/L Calcium (8.6-10.3) mg/dL Total Bilirubin (0.2-1.0) mg/dL AST (13-39) U/L ALT (7-52) U/L Alkaline Phosphatase (34-104) U/L C-Reactive Protein (<8.01) mg/L Total Protein (6.4-8.9) g/dL Albumin (3.2-5.2) g/dL Globulin (2-4) g/dL Albumin/Globulin Ratio (1-3) Beta HCG, Quant mIU/mL Urine Color Yellow Urine Appearance Cloudy Urine pH 5.0 (5-9) Ur Specific Ragland 1.023 (1.010-1.030) Urine Protein 1+(30 mg/dl) A (Negative) Urine Ketones Trace A (Negative) Urine Blood 2+ A (Negative) Urine Nitrate Negative (Negative) Urine Bilirubin Negative (Negative) Urine Urobilinogen Negative (Negative) Ur Leukocyte Esterase 2+ A (Negative) Urine WBC (Auto) 2+(11-20/hpf) A (Absent) Urine RBC (Auto) 1+(3-5/hpf) A (Absent) Ur Squamous Epith Cells Present A (Absent) Urine Bacteria 1+ A (Absent) Hyaline Casts Present A (Absent) Granular Casts Present A (Absent) Urine Glucose Negative (Negative) Monoscreen (Negative) Influenza A (Rapid) Negative (Negative) Influenza B (Rapid) Negative (Negative) Microbiology and Other Data: Microbiology 06/15/18 02:19 CSF Gram Stain (Tube 3) - Final Cerebral Spinal Fluid 06/14/18 21:03 Influenza Types A,B Antigen - Final Nasal Specimen received for Influenza A/B Molecular testing Assess/Plan/Problems-Billing Assessment: - Patient Problems (1) Pancytopenia Current Visit: Yes Status: Acute Code(s): D61.818 - OTHER PANCYTOPENIA SNOMED Code(s): 871134007 Comment: - Neutropenic to 1.0 with ANC 0.6 with bendemia, anemia and thrombocytopenia - In the setting of possible HIV acute infection: HIV serology reflexed, results pending. HIV RNA/viral load pending - CSF gram stain with no organisms. 7k WBC makes bacterial meningitis less likely. - Blood cultures, CMV, eula kaur, enterrovirus PCR, stool culture, lyme and tick-borne disease panel pending - Milam, flu A&B negative - ID following, appreciate reqs. - Continue ceftriaxone 1g (2) Nausea Current Visit: Yes Status: Acute Code(s): R11.0 - NAUSEA SNOMED Code(s): 337620840 Comment: - Pt still nauseated, however is not vomiting - Continue reglan and compazine. Continue IVF supplimentation (3) Headache Current Visit: Yes Status: Acute Code(s): R51 - HEADACHE SNOMED Code(s): 09617198 Comment: - Increased toradol dose from 15mg to 30mg Q6H - Neck pain has improved (4) Diabetes Current Visit: Yes Status: Acute Code(s): E11.9 - TYPE 2 DIABETES MELLITUS WITHOUT COMPLICATIONS SNOMED Code(s): 36914735 Comment: - Metformin held - Continue sliding scale lispro (5) GERD (gastroesophageal reflux disease) Current Visit: Yes Status: Acute Code(s): K21.9 - GASTRO-ESOPHAGEAL REFLUX DISEASE WITHOUT ESOPHAGITIS SNOMED Code(s): 846382057 Comment: - Continue omeprazole (6) Full code status Current Visit: Yes Status: Acute Code(s): Z78.9 - OTHER SPECIFIED HEALTH STATUS SNOMED Code(s): 073116952 (7) DVT prophylaxis Current Visit: Yes Status: Acute Code(s): JUJ7820 - SNOMED Code(s): 836756479 Comment: - Pt is low risk. Encourage ambulation Status and Disposition: Inpatient.
[2018-06-15] MEDS: Ketorolac INJ* 30 MG/ML 1 ML VIAL IV PUSH PRN (15:58)
--- NOTE | 2018-06-15 20:39 | CONS ---
CONSULTATION REPORT: DATE OF CONSULT: 06/15/18 REQUESTING PROVIDER: Nati Villalobos NP CONSULTING SERVICE: Infectious Disease. REASON FOR CONSULTATION: Headache, fever, malaise, diarrhea, vomiting. IMPRESSION: 1. Three to four days of chills, fever, diarrhea and vomiting, malaise, anorexia, severe headache without nuchal rigidity, benign spinal fluid profile and pancytopenia. Taken together, I think most likely a viral infection including acute retroviral syndrome. Other possibilities include enterovirus i.e. coxsackievirus. She is around a lot of young children, who as far as she knows have not been ill. 2. Morbid obesity. 3. Diabetes type 2. RECOMMENDATIONS: Stop the vancomycin and acyclovir. Continue ceftriaxone. She did have a recent male sexual partner from the [facility] who she notes has had frequent hospitalizations and she had to have removed from her household because of social situations. She is unsure of his HIV status. We will add HIV viral load for retroviral syndrome detection. She has an HIV antibody pending as well as CMV and EBV serologies. Blood cultures and spinal fluid cultures are pending. We will add an antiviral PCR to the spinal fluid. HISTORY OF PRESENT ILLNESS: A 32-year-old woman with obesity and diabetes admitted with the onset of chills, feverish feeling, decreased appetite, right frontal headache, vomiting and diarrhea without abdominal pain that had developed over the last 5 days. Because of progression of those symptoms, she came to the hospital yesterday. She had a white count of 1.4, hemoglobin 11, platelets 106. Creatinine is 1, AST 72, ALT normal, hCG negative, CRP 5. She did not spend any time outdoors. To speak out, she has a dog and cat, both of which have Seresto collars. The kids at home have not been sick and nor have other children she has been around. She has had no travel. Yesterday, she had a chest x-ray and brain CT that were unremarkable. She started on vancomycin, ceftriaxone, acyclovir. Lumbar puncture showed 7 white blood cells, protein was normal, glucose 72 and influenza PCR and monospot were negative. Here, she has had a T-max of 38.2 last night. Today, she does not have any neck stiffness. She has headache which is the frontal and more on the right. She does not have blurred vision, double vision or photophobia. She says the headache gets worse when she sits up but not better when she lies down. She can move her neck without too much trouble. She has no neck or back pain. No joint pain. PAST MEDICAL HISTORY: 1. Morbid obesity. 2. Type 2 diabetes. 3. Gastroesophageal reflux disease. 4. Anxiety. MEDICATIONS: 1. Tylenol. 2. Acyclovir 600 mg IV every 8 hours. 3. Celexa. 4. Ceftriaxone 1 g a day. 5. Vancomycin. ALLERGIES: No known drug allergies. FAMILY HISTORY: Mother is alive with diabetes and hypertension. Father from drug overdose. SOCIAL HISTORY: She lives in [place] with 3 children. She stays at home with them. She does see her nieces and the nephews who are young as well. She had a new male partner from [facility]. There were some domestic issues with his presence. He is out of the picture now and that was about 5 or 6 weeks ago, she had sex with him. She denies injection drug use. REVIEW OF SYSTEMS: A 14-point review was all negative except as noted above in the history of present illness. PHYSICAL EXAM: Vital Signs: Temperature 37, heart rate 80, respiratory rate 12 , blood pressure 135/68, oxygen saturation 96% on room air. In general, she is awake, appears uncomfortable, but not in distress. Neurologic: She is oriented x3. Follows all commands. Cranial nerves II through XII intact. Strength is intact in the upper and lower extremities bilaterally. HEENT: There is no conjunctival hemorrhage. Oropharynx: Without lesions. Neck is supple without mass. Heart: Regular rate and rhythm without murmurs, rubs, or gallops. Lungs are clear to auscultation bilaterally. Abdomen: Soft, nontender, nondistended. There are bowel sounds present. Lymphatics: There is no cervical, supraclavicular, inguinal, axillary, or epitrochlear lymphadenopathy. Musculoskeletal: There is no spine tenderness to palpation or joint synovitis. Skin: There is no rash or splinter hemorrhage. LABORATORY DATA: White blood cell count 1, hemoglobin 10, platelets 75. ANC 600. Creatinine is 0.9. Urinalysis shows blood, no leukocyte esterase. Please see impression and recommendations outlined above, which I have discussed with Nati Villalobos NP. Thank you for asking me to see Ms. Carmona in consultation. [id number]/[facility] #: [id number] BISHOP
[2018-06-16] MEDS: Ketorolac INJ* 30 MG/ML 1 ML VIAL IV PUSH PRN (00:17)
[2018-06-16] MEDS: Ondansetron INJ* 2 MG/ML VIAL IV PRN (00:22)
[2018-06-16 06:35] LABS: ABS Basophils 0 10^3/ul (0-0.2); ABS Eosinophils 0 10^3/ul (0-0.6); ABS Lymphocytes 0.7 10^3/ul (1.0-4.8); ABS Monocytes 0.1 10^3/ul (0-0.8); ABS Nucleated RBC 0 10^3/ul; Eosinophil % 0 %; Hematocrit 32 % (35-47); Hemoglobin 10.5 g/dl (12.0-16.0); Lymphocyte % 49.3 %; Mean Corpuscular HGB Conc 32 g/dl (31-36); Mean Corpuscular Hemoglobin 24 pg (27-31); Mean Corpuscular Volume 75 fL (80-97); Mean Platelet Volume 8.7 fL (7.4-10.4); Nucleated Red Blood Cells % 0.1; Platelet Count 71 10^3/ul (150-450); Red Blood Count 4.35 10^6/ul (4.00-5.40); Red Cell Distribution Width 15 % (10.5-15); White Blood Count 1.4 10^3/ul (3.5-10.8)
[2018-06-16 09:16] VITALS: BP 126/71
[2018-06-16] MEDS: Omeprazole CAP* 20 MG PO SCH (09:29)
[2018-06-16] MEDS: Citalopram TAB* 10 MG PO SCH (09:29)
[2018-06-16] MEDS: Insulin LISPRO* 1 UNITS UNIT SUBCUT SCH (09:29)
[2018-06-16] MEDS: NS 0.9% 1000 ML* 1,000 ML IV SCH (09:47)
--- NOTE | 2018-06-16 10:17 | PN ---
Progress Note - Progress Note Date of Service: 06/16/18 SOAP: Subjective: CC: vomiting HPI: 32 year old woman with fever, vomiting, diarrhea, malaise, severe headache. All improving and eating some. No nausea. Objective: Vital Signs Temp 37.0 C 06/16/18 07:53 Pulse 84 06/16/18 07:53 Resp 17 06/16/18 07:53 BP 126/71 06/16/18 07:53 Pulse Ox 98 06/16/18 07:53 Intake & Output 06/15/18 06/16/18 06/16/18 18:59 06:59 18:59 Intake Total 2008 360 240 Balance 2008 360 240 Intake: IV Fluids 849 NS (0.9%) 849 IVPB 60 ABX - CEFTRIAXONE 60 Oral 1100 360 240 Other: Estimated Void Medium # Bowel Movements 0 # Voids 1 Gen:awake, no distress HEENT: no thrush Heart:RRR no murmur Lungs:CTA BL Abd:+BS NTND soft Skin: no rash Laboratory Results - last 24 hr 06/14/18 06/14/18 06/15/18 19:44 19:44 02:19 WBC RBC Hgb Hct MCV MCH MCHC RDW Plt Count MPV Neut % (Auto) Lymph % (Auto) Republic % (Auto) Eos % (Auto) Baso % (Auto) Absolute Neuts (auto) Absolute Lymphs (auto) Absolute Monos (auto) Absolute Eos (auto) Absolute Basos (auto) Absolute Nucleated RBC Nucleated RBC % Hem Pathologist Commnt Sodium Potassium Chloride Carbon Dioxide Anion Gap BUN Creatinine Est GFR ( Amer) Est GFR (Non-Af Amer) BUN/Creatinine Ratio Glucose POC Glucose (mg/dL) Calcium Fluid Cell Count Rvw By HIV 1&2 Antibody Reflexed A 06/15/18 06/15/18 06/15/18 06:18 11:38 16:48 WBC RBC Hgb Hct MCV MCH MCHC RDW Plt Count MPV Neut % (Auto) Lymph % (Auto) Republic % (Auto) Eos % (Auto) Baso % (Auto) Absolute Neuts (auto) Absolute Lymphs (auto) Absolute Monos (auto) Absolute Eos (auto) Absolute Basos (auto) Absolute Nucleated RBC Nucleated RBC % Hem Pathologist Commnt Sodium Potassium Chloride Carbon Dioxide Anion Gap BUN Creatinine Est GFR ( Amer) Est GFR (Non-Af Amer) BUN/Creatinine Ratio Glucose POC Glucose (mg/dL) 137 H 135 H Calcium Fluid Cell Count Rvw By HIV 1&2 Antibody 06/16/18 06/16/18 06/16/18 06:18 06:18 07:30 WBC 1.4 L RBC 4.35 Hgb 10.5 L Hct 32 L MCV 75 L MCH 24 L MCHC 32 RDW 15 Plt Count 71 L MPV 8.7 Neut % (Auto) 43.6 Lymph % (Auto) 49.3 Republic % (Auto) 6.7 Eos % (Auto) 0 Baso % (Auto) 0.4 Absolute Neuts (auto) 0.6 L* Absolute Lymphs (auto) 0.7 L Absolute Monos (auto) 0.1 Absolute Eos (auto) 0 Absolute Basos (auto) 0 Absolute Nucleated RBC 0 Nucleated RBC % 0.1 Hem Pathologist Commnt Sodium 141 Potassium 3.6 Chloride 112 H Carbon Dioxide 22 Anion Gap 7 BUN 9 Creatinine 0.70 Est GFR ( Amer) 117.3 Est GFR (Non-Af Amer) 97.0 BUN/Creatinine Ratio 12.9 Glucose 106 H POC Glucose (mg/dL) 122 H Calcium 7.6 L Fluid Cell Count Rvw By HIV 1&2 Antibody Assessment: 1. flu like illness, positive HIV Ab, suspect acute HIV 2. T2DM 3. obesity Plan: 1. HIV 1 confirmatory ab and VL pending; Biktarvy one tab daily and fu with me next week. We discussed slim chance of false positive due to other viral illness. 35 minutes floor time >50% face to face in counseling regarding likely diagnosis of HIV infection, treatment, support and prognosis. She has social support here and will have SW meet with her.
[2018-06-16 20:38] LABS: Lyme Disease Source CSF
[2018-06-16 23:05] LABS: ABS Neutrophils 0.6 10^3/ul (1.5-7.7)
--- NOTE | 2018-06-17 01:43 | DS ---
CC: Dr. Gaitan * DISCHARGE SUMMARY: DATE OF ADMISSION: 06/15/18 DATE OF DISCHARGE: 06/16/18 PROVIDER: Nati Bruno NP ATTENDING PHYSICIAN: Dr. Courtney * (dictated by Nati Bruno NP). PRIMARY CARE PROVIDER: The patient is formerly a patient of Dr. Amezquita at [facility], but was discharged from his office. Internal Medicine of [facility] has agreed to take her on as a patient again. CONSULTING PHYSICIAN: Dr. Gaitan. PRIMARY DIAGNOSES: 1. Acute human immunodeficiency virus infection. 2. Pancytopenia. SECONDARY DIAGNOSES: 1. Type 2 diabetes. 2. Obesity. MEDICATIONS: 1. Metformin 500 mg p.o. b.i.d. 2. Citalopram 20 mg p.o. daily. 3. Tylenol 1000 mg p.r.n. 4. Vitamin D. 5. Omeprazole. New medications upon discharge: 1. Biktarvy 50-200-25 mg tablet, 1 tablet p.o. daily. STUDIES WHILE IN THE HOSPITAL: 1. Chest x-ray, which showed no evidence of acute disease. 2. Brain CT, which showed no acute intracranial abnormality. LAB STUDIES: Serology: CMV IgG antibody positive, CMV IgM antibody negative, EBV capsid Ag IgG antibody positive, EBV capsid Ag IgM antibody negative, EBV nuclear antigen positive. [place] screen negative. HIV 1 and 2 antibody reflexed , positive antibody. Influenza A and B negative. CSF cultures with no growth to date. Gram stain with no organism seen. Blood cultures with no growth to date. HOSPITAL COURSE: The patient is a 32-year-old female with a past medical history of diabetes, who presented to the emergency room after having 4 to 5 days of nausea, vomiting, watery diarrhea, fever, and headache, as well as swollen gums. In the ED, she demonstrated a severe frontal headache and neck pain and was unable to flex her neck, arousing concern for meningitis. The patient was also found to be pancytopenic with bandemia. She had a white blood cell count of 1.4, hemoglobin of 11.6, hematocrit of 36, platelet count of 106, and 29% bands. She had a T-max of 100.8 in the ED and the rest of her vital signs were stable. She did undergo a lumbar puncture and was started on ceftriaxone, vancomycin, and acyclovir. The lumbar puncture demonstrated benign spinal fluid profile and eventually the Gram stain and culture showed no growth. The patient was also tested for HIV, EBV, CMV, flu, mono, stool cultures, and a tick-borne illness profile. The patient had no recent travel. Dr. Gaitan with ID was consulted. After the lumbar puncture came back negative, vancomycin and acyclovir were discontinued. The patient's HIV antibody test did come back positive, so it is suspected that the patient's symptoms are due to an acute HIV infection. Of note, the patient related to Dr. Gaitan that she did have a recent new male sexual partner from [facility], who she knows to have had frequent hospitalizations and had to have removed from her household because of social situation. She is unclear of his HIV status. A viral load has been ordered and is pending. Dr. Gaitan would like the patient to be started on Biktarvy 1 tablet daily. The patient has been seen by Social Work, who discussed her new diagnosis and provided her with resources for affording medication as well as social support. On the day of discharge, the patient's headache, neck pain, and nausea have resolved. The patient was able to eat breakfast without nausea and vomiting and was eager to return home. The patient will have close followup with Dr. Gaitan. She has an appointment on Wednesday. She will also need close followup with the primary care provider. PHYSICAL EXAMINATION: On the day of discharge, vitals: Temp 98.6, heart rate 84, respiratory rate 17, O2 sat 98% on room air, blood pressure 126/71. General Constitution: The patient is pleasant and appears to be in no acute distress; however, she does have anxiety regarding her new diagnosis. HEENT: Normocephalic, atraumatic. Pupils are equal, round, and reactive to light and accommodation. EOMs are intact. Neck: Supple. No lymphadenopathy noted. No JVD appreciated. Respiratory: No accessory muscle use. Lungs are clear to auscultation. Normal work of breathing. Cardiac: Regular rate and rhythm. S1 and S2 present. No murmurs, rubs, or gallops. Abdomen: Soft, nontender, nondistended. There are bowel sounds present x4. Extremities: No lower extremity edema. DP and PT pulses are 2+ and symmetric. Musculoskeletal: No clubbing or cyanosis noted. Neuro: The patient is alert and oriented x3. Psych : The patient is calm and cooperative. Skin: No rashes or abnormalities seen. DISPOSITION: The patient is stable for discharge to home with close followup. DIET: Regular diet. ACTIVITY: Activity as tolerated. FOLLOWUP: The patient has an appointment to follow up with Dr. Gaitan on Wednesday. She will also need close followup from primary care provider. Internal Medicine of [facility] has agree to take her on as a patient again and will be reaching out to her to schedule an appointment TIME SPENT: Time spent on this discharge was 45 minutes. NATI BRUNO NP [id number]/[place] #: [id number] MTDJohnson
== END 2018-06-16 12:50 | disposition home or self-care (01) ==
LOC: ED 18:44 → MED 06-15 01:33 → INTOOBSV 06-15 01:33
PROVIDERS: ADMIT Pediatrics; ATTEND Internal Medicine
DX: B20 Human immunodeficiency virus [HIV] disease (principal); D61.818 Other pancytopenia; E11.9 Type 2 diabetes mellitus without complications; E66.9 Obesity, unspecified; R51 Headache; R11.2 Nausea with vomiting, unspecified; R19.7 Diarrhea, unspecified; R50.9 Fever, unspecified; R05 Cough; Z79.4 Long term (current) use of insulin; Z87.442 Personal history of urinary calculi; F17.210 Nicotine dependence, cigarettes, uncomplicated; K21.9 Gastro-esophageal reflux disease without esophagitis
CPT/HCPCS: 36415; 70450; 71045; 80048; 80053; 81003; 81015; 82803; 82945; 83605; 84157; 84702; 85025; 85045; 85060; 86140; 86308; 86617; 86618; 86644; 86645; 86664; 86665; 86666; 86701; 86702; 86703; 86753; 87040; 87045; 87046; 87070; 87086; 87205; 87476; 87498; 87529; 87536; 87798; 87899; 89051; 99285; A9270-GY; G0378; J0133; J0696; J0780; J1885; J2405; J3370

== ENCOUNTER 2019-07-09 17:57 | Emergency (ER) | payer OTHER ==
[2019-07-09] MEDS ORDERED: Pantoprazole IV* 40 MG IV ONE (18:18)
--- NOTE | 2019-07-09 18:21 | ED ---
GI/ HPI - HPI Summary HPI Summary: 33 y/o female presented to [facility] complaining of blood per rectum and constant abdominal pain that initially onset two weeks ago. She states that abdominal pain has been constant since onset. Blood per rectum temporarily resolved but returned yesterday morning, 07/08/19. She notes production of blood clots per rectum and estimates that she has had five episodes of blood since yesterday. She had been evaluated by Dr. Adamson who recommended CT abdomen and bloodwork. The CT was denied by insurance, patient has not had bloodwork done yet. Patient takes Omeprazole for GERD. - History of Current Complaint Chief Complaint: EDGIBleed Time Seen by Provider: 07/09/19 18:05 Stated Complaint: ABDOMINAL PAIN, BLOOD IN STOOL PER PT Hx Obtained From: Patient Hx Last Menstrual Period: beginning of april Onset/Duration: Started Weeks Ago, Still Present Timing: Constant, Lasting Weeks Current Severity: Moderate Pain Intensity: 6 Location of Pain: RUQ, Epigastric Associated Signs and Symptoms: Positive: Other: - blood per rectum with clots - Additional Pertinent History Primary Care Physician: [id number] - Allergy/Home Medications Allergies/Adverse Reactions: Allergies Allergy/AdvReac Type Severity Reaction Status Date / Time No Known Allergies Allergy Verified 06/14/18 19:06 PMH/Surg Hx/FS Hx/Imm Hx Endocrine/Hematology History: Reports: Hx Diabetes - on insulin, Hx Anemia Denies: Hx Thyroid Disease Cardiovascular History: Denies: Hx Hypertension Respiratory History: Reports: Hx Sleep Apnea - ? WILL HAVE STUDY AFTER SURGERY Denies: Hx Asthma, Hx Chronic Obstructive Pulmonary Disease (COPD) GI History: Denies: Hx Ulcer History: Reports: Hx Kidney Stones - 2007 Sensory History: Denies: Hx Contacts or Glasses, Hx Deafness, Hx Hearing Aid Opthamlomology History: Denies: Hx Contacts or Glasses Neurological History: Reports: Hx Headaches - ALL THE TIME- TAKES TYLENOL FOR, Hx Migraine - HX OF Psychiatric History: Reports: Hx Anxiety - IN THE PAST, Hx Depression - IN THE PAST - Surgical History Surgery Procedure, Year, and Place: 2007 cholecystectomy. D&C. two abortions Hx Anesthesia Reactions: No - Immunization History Date of Tetanus Vaccine: unknown Date of Influenza Vaccine: never received Infectious Disease History: No Infectious Disease History: Denies: Hx Hepatitis, Hx Human Immunodeficiency Virus (HIV), Traveled Outside the [place] in Last 30 Days - Family History Known Family History: Negative: Cardiac Disease - Social History Alcohol Use: None Substance Use Type: Reports: Marijuana Substance Use Comment - Amount & Last Used: MARIJUANNA USE- LAST A COUPLE OF WEEKS AGO Hx Tobacco Use: Yes Smoking Status (MU): Light Every Day Tobacco Smoker Type: Cigarettes Amount Used/How Often: 1/2 PPD X 14 YEARS Have You Smoked in the Last Year: Yes Review of Systems Negative: Fever - vitals show temp at 98.3F Positive: Abdominal Pain, Other - blood per rectum with clots All Other Systems Reviewed And Are Negative: Yes Physical Exam - Summary Physical Exam Summary: Appearance: The patient is well-nourished in no acute distress and in no acute pain. Skin: The skin is warm and dry, and skin color reflects adequate perfusion. HEENT: The head is normocephalic and atraumatic. The pupils are equal and reactive. The conjunctivae are clear and without drainage. Nares are patent and without drainage. Mouth reveals moist mucous membranes, and the throat is without erythema and exudate. The external ears are intact. The ear canals are patent and without drainage. The tympanic membranes are intact. Neck: The neck is supple with full range of motion and non-tender. There are no carotid bruits. There is no neck vein distension. Respiratory: Chest is non-tender. Lungs are clear to auscultation and breath sounds are symmetrical and equal. Cardiovascular: Heart is regular rate and rhythm. There is no murmur or rub auscultated. There is no peripheral edema and pulses are symmetrical and equal. Abdomen: The abdomen is tender in the RUQ and epigastrium. There are normal bowel sounds heard in all four quadrants and there is no organomegaly palpated. Musculoskeletal: There is no back tenderness noted. Extremities are non-tender with full range of motion. There is good capillary refill. There is no peripheral edema or calf tenderness elicited. Neurological: Patient is alert and oriented to person, place and time. The patient has symmetrical motor strength in all four extremities. Cranial nerves are grossly intact. Deep tendon reflexes are symmetrical and equal in all four extremities. Psychiatric: The patient has an appropriate affect and does not exhibit any anxiety or depression. Triage Information Reviewed: Yes Vital Signs On Initial Exam: Initial Vitals Temp Pulse Resp BP Pulse Ox 98.3 F 80 18 130/67 97 07/09/19 17:58 07/09/19 17:58 07/09/19 17:58 07/09/19 17:58 07/09/19 17:58 Vital Signs Reviewed: Yes Procedures - Sedation Patient Received Moderate/Deep Sedation with Procedure: No Diagnostics - Vital Signs Vital Signs Temp Pulse Resp BP Pulse Ox 07/09/19 17:58 98.3 F 80 18 130/67 97 - Laboratory Result Diagrams: 07/09/19 18:25 07/09/19 18:25 Lab Statement: Any lab studies that have been ordered have been reviewed, and results considered in the medical decision making process. - CT abdomen/pelvis CT Interpretation Completed By: Radiologist Summary of CT Findings: IMPRESSION: 1. No CT findings to correlate with patient 's symptomatology. 2. Left nephrolithiasis. This report was reviewed by the ED physician. GIGU Course/Dx - Course Course Of Treatment: Ms. Carmona presented complaining of a couple weeks of epigastric pain syncopal days of bright red blood per rectum. She's had 5 episodes of passing some blood and saw clots once. She was nontoxic in appearance here were stable vitals. She was tender in the epigastrium and the right upper quadrant. She was given IV Protonix while labs were obtained which were unremarkable. She did not get significant relief from her pain but did not seem to be in any distress whatsoever. I recommended we try sucralfate for a few days while we get her follow-up with her PCP to consider EGD - Diagnoses Provider Diagnoses: Rectal bleed, Epigastric pain Discharge ED - Sign-Out/Discharge Documenting (check all that apply): Patient Departure - discharge - Discharge Plan Condition: Stable Disposition: HOME Prescriptions: Sucralfate SUSP 1 gm PO QID ACHS #200 ml Patient Education Materials: Rectal Bleeding (ED), Epigastric Pain (ED) Referrals: Jen Castañeda MD [Primary Care Provider] - 3 Days Additional Instructions: PLEASE RETURN TO ED FOR ANY NEW OR WORSENING SYMPTOMS. PLEASE FOLLOW UP WITH YOUR PRIMARY CARE PHYSICIAN WITHIN THREE DAYS. - Billing Disposition and Condition Condition: STABLE Disposition: Home - Attestation Statements Document Initiated by Scribe: Yes Documenting Scribe: DEBI MCGRATH Provider For Whom Scribe is Documenting (Include Credential): EMMA LARES MD Scribe Attestation: DEBI Chawla scribed for EMMA LARES MD on 07/10/19 at 1229. Scribe Documentation Reviewed: Yes Provider Attestation: The documentation as recorded by the scribeDEBI accurately reflects the service I personally performed and the decisions made by me, EMMA LARES MD Status of Scribe Document: Viewed
[2019-07-09 18:31] LABS: ABS Basophils 0.1 10^3/ul (0-0.2); ABS Eosinophils 0.1 10^3/ul (0-0.6); ABS Lymphocytes 2.5 10^3/ul (1.0-4.8); ABS Monocytes 0.5 10^3/ul (0-0.8); ABS Neutrophils 5.9 10^3/ul (1.5-7.7); Eosinophil % 1.3 %; Hematocrit 35 % (35-47); Hemoglobin 11.7 g/dL (12.0-16.0); Lymphocyte % 27.5 %; Mean Corpuscular HGB Conc 33 g/dL (31-36); Mean Corpuscular Hemoglobin 27 pg (27-31); Mean Corpuscular Volume 82 fL (80-97); Mean Platelet Volume 8.2 fL (7.4-10.4); Platelet Count 285 10^3/uL (150-450); Red Blood Count 4.31 10^6 /uL (3.70-4.87); Red Cell Distribution Width 14 % (10-15); White Blood Count 8.9 10^3/uL (3.5-10.8)
[2019-07-09 18:40] LABS: Activated Partial Thrombo Time 32.7 seconds (26.0-38.0); INR 1.03 (0.82-1.09)
[2019-07-09 18:49] LABS: Albumin 4.2 g/dL (3.2-5.2); Albumin/Globulin Ratio 1.4 (1-3); BUN/Creatinine Ratio 17.2 (8-20); Calcium 9.2 mg/dL (8.6-10.3); EGFR Non-African American 69.4 (>60); Potassium 3.3 mmol/L (3.5-5.0); Total Bilirubin 0.3 mg/dL (0.2-1.0); Total Protein 7.2 g/dL (6.4-8.9)
--- OUTSIDE RECORDS SUMMARY | 2019-07-09 18:58 | XMS REPORT | Continuity of Care Document ---
:1985 External Reference #:[id number] Author Name Luis Felipe Branch M.D. (transmitted by agent of provider Josee Barlow) Address [address] [place] [id number] Care Team Providers Name Role Phone Alirio Gregory MD - Internal Care Team Information Associate Medicine Tj Campbell MD - Endocrinology, Care Team Information Associate Diabetes & Metabolism [facility] - Sleep Disorder Care Team Information Associate Diagnostic Javier Choi MD - Care Team Information Associate [phone] Otolaryngology Mario Molina MD - Care Team Information Associate [phone] Ophthalmology Jen Castañeda M.D. - Family Medicine Care Team Information Associate Problems Active Problems Provider Date Type 2 diabetes mellitus without Julito Amezquita M.D.,FACP Onset: 2015 complication Personal History Of Gestational Julito Amezquita M.D.,FACP Onset: 2013 Diabetes Morbid obesity Julito Amezquita M.D.,FACP Onset: 08/31/2013 History of gestational diabetes Julito Amezquita M.D.,FACP Onset: 2015 mellitus Panic disorder without agoraphobia Julito Amezquita M.D.,FACP Onset: 2015 Ex-smoker Julito Amezquita M.D.,FACP Onset: 06/10/2016 Vitamin D deficiency Julito Amezquita M.D.,FACP Onset: 01/21/2017 Microcytic anemia Julito Amezquita M.D.,FACP Onset: 01/21/2017 Human immunodeficiency virus infection Jen Castañeda MD Onset: 06/22/2018 Social History Type Date Description Comments Sex Unknown Tobacco Use Start: Unknown currently smokes 1/2 Pack Daily ETOH Use 06/14/2016 Rarely consumes alcohol Recreational Drug Use Denies Drug Use Tobacco Use Start: Unknown Light tobacco smoker (10 for about 15 yrs or fewer cigarettes/day) Smoking Status Reviewed: 05/12/19 Light tobacco smoker (10 for about 15 yrs or fewer cigarettes/day) Allergies, Adverse Reactions, Alerts Active Allergies Reaction Severity Comments Date NKDA 07/26/2018 Chocolate hives 11/05/2010 Inactive Allergies NKDA 11/05/2010 NKDA 08/31/2013 Medications Active Medications SIG Qnty Indications Ordering Provider Date Sertraline HCL 1 by mouth every 90tabs Jen Castañeda MD 03/16/2019 100mg day Tablets Sertraline HCL Take 1 Tablet By 30tabs Reina Mcclendon, 02/01/2019 50mg Mouth Every Day M.D. Tablets With 25 MG Tab For A Total Of 75MG/Day Sertraline HCL Take 1 Tablet By 30tabs F33.2 Reina Mcclendon, 01/27/2019 25mg Mouth Every Day M.D. Tablets With 50 MG Tab For A Total Of 75MG/Day Zolpidem Tartrate one half to one 30tabs G47.00 Jen Castañeda MD 01/27/2019 5mg tablet by mouth Tablets at bedtime, as needed for insomnia Cetirizine HCL take 1 tablet by 60tabs L50.1 Jen Castañeda MD 06/22/2018 10mg mouth 1-2 times Tablets a day as needed for hives. plan limits 1 per day. Topiramate one by mouth 60tabs G43.009 Jen Castañeda MD 06/22/2018 25mg twice a day Tablets Onet[employer] check blood 100units Jen Castañeda MD 06/22/2018 Lancets sugar twice a Misc day. fasting in the in the morning and post prandial between lunch and dinner Alcohol Pads twice a day 100units Lynda Juan, 06/22/2018 70% Pads testing or as M.D. needed Naratriptan HCL 1 by mouth every 9tabs Jen Castañeda MD 04/14/2018 2.5mg day as needed Tablets Pantoprazole Sodium take 1 tablet by 30tabs K21.9 Luis Felipe Ochoa 08/25/2017 mouth every day Theresa Branch 20mg Tablets DR Wrist Brace wear daily take 1units G56.01 Regulo Buchanan NP 10/06/2016 Misc off for showers and dressing [facility] 2 check blood 1units Jen Castañeda MD 10/04/2015 sugar 2 times w/Device Kit daily Onetouch Ultra Blue test up to four 200units Jen Castañeda MD 10/04/2015 times a day or Strips as directed Metformin HCL Take 1 Tablet By 60tabs Jen Castañeda MD 07/25/2015 500mg Mouth Twice A Tablets Day Biktarvy Take 1 Tablet By 30tabs Luis Felipe Ochoa 50-200-25mg Mouth Every Day Theresa Branch Tablets History Medications Venlafaxine HCL one a day, with 30tabs Jen Castañeda MD 01/11/2019 - 75mg 150mg tablet. 01/27/2019 Tablets Venlafaxine HCL ER 1 by mouth every 30caps F33.2 Jen Castañeda MD 2018 - morning 01/27/2019 150mg Caps ER 24HR Gabapentin take 1-3 capsules 90caps G47.00 Jen Castañeda MD 12/15/2018 - 100mg by mouth at 01/27/2019 Capsules bedtime as needed for insomnia Immunizations CPT Code Status Date Vaccine Lot # [id number] Given 09/06/2018 Pneumonia Vaccine [id number] Given 06/21/2018 Influenza Virus Vaccine, Quadrivalent, Split, [id number] Preservative Free [id number] Given 06/21/2018 Pneumococcal Conjugate Vaccine 13 Valent For [id number] Intramuscular Use Vital Signs Date Vital Result Comment 05/12/2019 9:59am Height 66 inches 5'6" Weight 225.00 lb Heart Rate 72 /min BP Systolic Sitting 120 mmHg BP Diastolic Sitting 64 mmHg Respiratory Rate 14 /min Body Temperature 97.6 F BMI (Body Mass Index) 36.3 kg/m2 01/27/2019 11:18am Height 66 inches 5'6" Weight 224.00 lb Heart Rate 64 /min BP Systolic Sitting 120 mmHg Rue lg cuff BP Diastolic Sitting 76 mmHg Rue lg cuff O2 % BldC Oximetry 98 % BMI (Body Mass Index) 36.2 kg/m2 Results Test Acquired Date Facility Test Result H/L Range Note HIV-1 Rna 05/02/2019 [facility] HIV-1 Rna Undetected Undetected 1 QNT By PCR [address] (PCR) copies/[place] [address] [phone] CD4/CD8 05/02/2019 [facility] Absolute CD45 2.10 thou/mcL 0.82-2.84 T-Cell [address] [place] [address] [phone] CD3 79 % 58-86 % CD4 41 % 32-64 % CD8 38 % 15-40 CD3 1646 cells/L 550-2202 CD4 855 cells/L 365-1437 CD8 796 cells/L 171-846 4/8 H/S Ratio 1.1 >=0.9 CD4 Reviewed By See Comment 2 Comp Metabolic 05/02/2019 [facility] Sodium 136 mmol/L Normal 135-[address] [place] [address] [phone] Potassium 4.5 mmol/L Normal 3.5-5.0 Chloride 104 mmol/L Normal 101-111 Co2 Carbon Dioxide 26 mmol/L Normal 22-32 Anion Gap 6 mmol/L Normal 2-11 Glucose 93 mg/dL Normal 70-100 Blood Urea Nitrogen 18 mg/dL Normal 6-24 Creatinine 0.98 mg/dL High 0.51-0.95 BUN/Creatinine Ratio 18.4 Normal 8-20 Calcium 9.6 mg/dL Normal 8.6-10.3 Total Protein 7.4 g/dL Normal 6.4-8.9 Albumin 4.6 g/dL Normal 3.2-5.2 Globulin 2.8 g/dL Normal 2-4 Albumin/Globulin Ratio 1.6 Normal 1-3 Total Bilirubin 0.30 mg/dL Normal 0.2-1.0 Alkaline Phosphatase 48 U/L Normal 34-104 Alt 6 U/L Low 7-52 Ast 9 U/L Low 13-39 Egfr Non- 65.4 >60 Egfr 79.1 >60 3 CBC Auto 12/15/2018 [facility] White Blood 6.7 10^3/uL Normal 3.5-10.[address] [place] [address] [phone] Red Blood Count 4.64 10^6/uL Normal 3.70-4.87 Hemoglobin 12.1 g/dL Normal 12.0-16.0 Hematocrit 37 % Normal 35-47 Mean Corpuscular Volume 79 fL Low 80-97 Mean Corpuscular Hemoglobin 26 pg Low 27-31 Mean Corpuscular HGB Conc 33 g/dL Normal 31-36 Red Cell Distribution Width 16 % High 10-15 Platelet Count 225 10^3/uL Normal 150-450 Mean Platelet Volume 10.0 fL Normal 7.4-10.4 Abs Neutrophils 4.3 10^3/uL Normal 1.5-7.7 Abs Lymphocytes 1.9 10^3/uL Normal 1.0-4.8 Abs Monocytes 0.3 10^3/uL Normal 0-0.8 Abs Eosinophils 0.1 10^3/uL Normal 0-0.6 Abs Basophils 0.1 10^3/uL Normal 0-0.2 Abs Nucleated RBC 0.0 10^3/uL Granulocyte % 64.0 % Lymphocyte % 28.6 % Monocyte % 4.6 % Eosinophil % 1.9 % Basophil % 0.9 % Nucleated Red Blood Cells % 0.2 HIV-1 Rna QNT 12/15/2018 [facility] HIV-1 Rna Undetected Undetected 4 By PCR Sli [address] (PCR) copies/[place] [address] [phone] Comp 12/15/2018 [facility] Sodium 139 mmol/L Normal 135-[address] [place] [address] [phone] Potassium 4.4 mmol/L Normal 3.5-5.0 Chloride 108 mmol/L Normal 101-111 Co2 Carbon Dioxide 25 mmol/L Normal 22-32 Anion Gap 6 mmol/L Normal 2-11 Calcium 9.3 mg/dL Normal 8.6-10.3 Albumin 4.1 g/dL Normal 3.2-5.2 Total Bilirubin 0.30 mg/dL Normal 0.2-1.0 Glucose 123 mg/dL High 70-100 Blood Urea Nitrogen 18 mg/dL Normal 6-24 Creatinine 0.87 mg/dL Normal 0.51-0.95 BUN/Creatinine Ratio 20.7 High 8-20 Total Protein 6.8 g/dL Normal 6.4-8.9 Globulin 2.7 g/dL Normal 2-4 Albumin/Globulin Ratio 1.5 Normal 1-3 Alkaline Phosphatase 50 U/L Normal 34-104 Alt 8 U/L Normal 7-52 Ast 8 U/L Low 13-39 Egfr Non- 75.0 >60 Egfr 90.7 >60 5 1 Result in log copies/mL is Undetected. ADDITIONAL INFORMATION The quantification range of this assay is 20 to 10,000,000 copies/mL (1.30 log to 7.00 log copies/mL). Testing was performed using the epifanio HIV-1 test ([employer] with the epifanio Voyando0 System. This test has been modified from the full stack developer's instructions. Its performance characteristics were determined by [facility] in a manner consistent with CLIA requirements. This test has not been cleared or approved by the U.S. Food and Drug Administration. Test Performed by: [place] [address] Sugar Refiner: Yuri Tyler M.D. Ph.D.; CLIA# [id number] 2 RESULT: Reviewed by: Praneeth Figueroa M.D. ADDITIONAL INFORMATION Reference values implemented November 01, 2012. This test was developed using an analyte specific reagent. Its performance characteristics were determined by [facility] in a manner consistent with CLIA requirements. This test has not been cleared or approved by the U.S. Food and Drug Administration. Test Performed by: [facility] [place] [id number] Sugar Refiner: Yuri Tyler M.D. Ph.D.; CLIA# [id number] 3 Because ethnic data is not always readily available, this report includes an eGFR for both -Americans and non- Americans. The National Kidney Disease Education Program (NKDEP) does not endorse the use of the MDRD equation for patients that are not between the ages of 18 and 70, are , have extremes of body size, muscle mass, or nutritional status, or are non- or non-. According to the National Kidney Foundation, irrespective of diagnosis, the stage of the disease is based on the level of kidney function: Stage Description GFR(mL/min/1.73 m(2)) 1 Kidney damage with normal or decreased GFR 90 2 Kidney damage with mild decrease in GFR 60-89 3 Moderate decrease in GFR 30-59 4 Severe decrease in GFR 15-29 5 Kidney failure <15 (or dialysis) 4 Result in log copies/mL is Undetected. ADDITIONAL INFORMATION The quantification range of this assay is 20 to 10,000,000 copies/mL (1.30 log to 7.00 log copies/mL). Testing was performed using the epifanio HIV-1 test ([employer] with the epifanio 6800 System. This test has been modified from the full stack developer's instructions. Its performance characteristics were determined by [facility] in a manner consistent with CLIA requirements. This test has not been cleared or approved by the U.S. Food and Drug Administration. Test Performed by: [address] [address] 5 Because ethnic data is not always readily available, this report includes an eGFR for both -Americans and non- Americans. The National Kidney Disease Education Program (NKDEP) does not endorse the use of the MDRD equation for patients that are not between the ages of 18 and 70, are , have extremes of body size, muscle mass, or nutritional status, or are non- or non-. According to the National Kidney Foundation, irrespective of diagnosis, the stage of the disease is based on the level of kidney function: Stage Description GFR(mL/min/1.73 m(2)) 1 Kidney damage with normal or decreased GFR 90 2 Kidney damage with mild decrease in GFR 60-89 3 Moderate decrease in GFR 30-59 4 Severe decrease in GFR 15-29 5 Kidney failure <15 (or dialysis) Procedures Description No Information Available Medical Devices Description No Information Available Encounters Type Date Location Provider Dx Diagnosis Office Visit 01/27/2019 [facility] Jen Castañeda MD F33.2 Major depressv 11:00a Medicine - Ccmob disorder, recurrent severe w/o psych features F41.9 Anxiety disorder, unspecified G47.00 Insomnia, unspecified Office Visit 12/15/2018 [facility] Luis Felipe Ochoa Z21 Asymptomatic human 2:20p For Infectious Theresa Branch immunodeficiency virus Diseases infection status Z79.899 Other long term care administrator (current) drug therapy Office Visit 12/15/2018 8:20a [facility] Jen Castañeda MD F33.2 Major depressv Medicine - Ccmob disorder, recurrent severe w/o psych features G47.00 Insomnia, unspecified R23.3 Spontaneous ecchymoses Assessments Date Code Description Provider 05/12/2019 Z21 Asymptomatic human immunodeficiency Luis Felipe Branch M.D. virus [HIV] infection st 05/12/2019 Z79.899 Other long term care administrator (current) drug therapy Luis Felipe Branch M.D. 05/12/2019 Z23 Encounter for immunization Luis Felipe Branch M.D. 05/12/2019 K21.9 Gastro-esophageal reflux disease without Luis Felipe Branch M.D. esophagitis 01/27/2019 F33.2 Major depressive disorder, recurrent Jen Castañeda MD severe without psychoti 01/27/2019 F41.9 Anxiety disorder, unspecified Jen Castañeda MD 01/27/2019 G47.00 Insomnia, unspecified Jen Castañeda MD 12/15/2018 Z21 Asymptomatic human immunodeficiency Luis Felipe Branch M.D. virus [HIV] infection st 12/15/2018 F33.2 Major depressive disorder, kay Castañeda MD severe without psychoti 12/15/2018 Z79.899 Other long term care administrator (current) drug therapy Luis Felipe Branch M.D. 12/15/2018 G47.00 Insomnia, unspecified Jen Castañeda MD 12/15/2018 R23.3 Spontaneous ecchymoses Jen Castañeda MD Plan of Treatment 05/12/2019 - Luis Felipe Branch M.D.Z21 Asymptomatic human immunodeficiency virus infection statusComments:will get flu shot at pharmacy, has to leave to catch the bus now, labs and fu 6 monthsFollow up:6 bgaewmV28.899 Other jail (current) drug [id number] Encounter for pclioctvesepM29.9 Gastro- esophageal reflux disease without esophagitis Functional Status Description No Information Available Mental Status Description No Information Available Referrals Refer to Reason for Referral Status Appt Date [facility] pt with depression and anxiety, worse Sent since her diagnosis of HIV in June [address] [place] [address] [phone] Melida Pagan[place] [facility] and some mood dysregulation Sent worsening since new diagnosis of HIV [address] [facility] [address] [place], [place] [id number] [phone]
--- OUTSIDE RECORDS SUMMARY | 2019-07-09 18:58 | XMS REPORT | Continuity of Care Document ---
:1985 External Reference #:[id number] Author Name Tayla Adamson M.D., FACP (transmitted by agent of provider Elba Johnson ) Address [address] [place] [phone] Care Team Providers Name Role Phone Alirio Gregory MD - Internal Care Team Information [facility] Medicine Tj Campbell MD - Endocrinology, Care Team Information Char Conveyor Tender [phone] Diabetes & Metabolism [facility] [place] Sleep Clinic - Sleep Disorder Care Team Information Char Con[facility]or Tender [phone] Diagnostic Javier Choi MD - Care Team Information Char [employer] Tender [phone] Otolaryngology Mario Molina MD - Care Team Information Char [employer] Tender [phone] Ophthalmology Jen Castañeda M.D. - Family Medicine Care Team Information Char Con[employer]or Tender [phone] Renita Miranda MD - Care Team Information Char [employer] Tender [phone] Gastroenterology Problems Active Problems Provider Date Type 2 [...] yrs or fewer cigarettes/day) Smoking Status Reviewed: 06/14/19 Light tobacco smoker (10 for about 15 yrs or fewer cigarettes/day) Allergies, Adverse Reactions, Alerts Active Allergies Reaction Severity Comments Date NKDA 07/26/2018 Chocolate hives 11/05/2010 Inactive Allergies NKDA 11/05/2010 NKDA 08/31/2013 Medications Active Medications SIG Qnty Indications Ordering Date Provider Aripiprazole 1 by mouth daily 30tabs F41.9 Taylalauren Adamson, 06/07/2019 2mg MBianca, FACP Tablets Lamisil AF Defense apply to 133gm B36.0 Tayla Adamson, 06/07/2019 1% affected area Theresa, FACP Aerosol daily x 1 month Sertraline HCL 1 by mouth every 90tabs Jen Castañeda MD 03/16/2019 100mg day Tablets Zolpidem Tartrate one half to one 30tabs G47.00 Jen Castañeda MD 01/27/2019 5mg tablet by mouth Tablets at bedtime, as needed for insomnia Cetirizine HCL take 1 tablet by 60tabs L50.1 Jen Castañeda MD 06/22/2018 10mg mouth 1-2 times Tablets a day as needed for hives. plan limits 1 per day. Topiramate one by mouth 60tabs G43.009 Tayla Adamson, 06/22/2018 25mg Tablets twice a day MBianca, FACP Onetouch Finepoint check blood 100units Jen Castañeda MD 06/22/2018 Lancets sugar twice a Misc day. fasting in the in the morning and post prandial between lunch and dinner Alcohol Pads twice a day 100units Lynda Martinez, 06/22/2018 70% Pads testing or as M.D. needed Naratriptan HCL 1 by mouth every 9tabs Jen Castañeda MD 04/14/2018 2.5mg day as needed Tablets Pantoprazole Sodium take 1 tablet by 30tabs K21.9 Luis Felipe Ochoa 08/25/2017 mouth every day Theresa Branch 20mg Tablets Wrist Brace wear daily take 1units G56.01 Regulo Buchanan NP 10/06/2016 Misc off for showers and dressing [employer] 2 check blood 1units Jen Castañeda MD [...] Every Day Theresa Branch Tablets History Medications Sertraline HCL Take 1 Tablet By 30tabs Reina Mcclendon, 02/01/2019 - 50mg Mouth Every Day M.D. 06/07/2019 Tablets With 25 MG Tab For A Total Of 75MG/Day Sertraline HCL Take 1 Tablet By 30tabs F33.2 Reina Mcclendon, 01/27/2019 - 25mg Mouth Every Day M.D. 06/07/2019 Tablets With 50 MG Tab For A Total Of 75MG/Day Venlafaxine HCL one a day, with 30tabs Jen Castañeda MD 01/11/2019 - 75mg 150mg tablet. 01/27/2019 Tablets Venlafaxine HCL ER 1 by mouth every 30caps F33.2 Jen Castañeda MD 2018 - morning 01/27/2019 150mg Caps ER 24HR Gabapentin take 1-3 90caps G47.00 Jen Castañeda MD 12/15/2018 - 100mg capsules by 01/27/2019 Capsules mouth at bedtime as needed for insomnia Immunizations CPT Code Status Date Vaccine Lot # [id number] Given 09/06/2018 Pneumonia Vaccine [id number] Given 06/21/2018 Influenza Virus Vaccine, Quadrivalent, Split, [id number] Preservative Free 38905 Given 06/21/2018 Pneumococcal Conjugate Vaccine 13 Valent For [id number] Intramuscular Use Vital Signs Date Vital Result Comment 06/14/2019 4:29pm Height 66 inches 5'6" Weight 221.00 lb Heart Rate 67 /min BP Systolic Sitting 113 mmHg BP Diastolic Sitting 69 mmHg Body Temperature 98.1 F Pain Level 7 stomach pain umbilical area O2 % BldC Oximetry 98 % BMI (Body Mass Index) 35.7 kg/m2 06/07/2019 1:04pm Height 66 inches 5'6" Weight 220.00 lb Heart Rate 69 /min BP Systolic Sitting 112 mmHg BP Diastolic Sitting 69 mmHg O2 % BldC Oximetry 96 % BMI (Body Mass Index) 35.5 kg/m2 Results Test Acquired Facility Test Result H/L Range Note Date Laboratory 06/07/2019 [facility] In House Hemoglobin A1c 5.7 5-7 test finding HIV-1 Rna QNT 05/02/2019 [facility] HIV-1 Rna Undetected Undetected 1 By PCR Sli [address] (PCR) copies/[place] [address] [phone] CD4/CD8 T-Cell 05/02/2019 [facility] Absolute CD45 2.10 thou/ mcL 0.82-2.[address] Count [place], [place] [id number] [phone] % CD3 79 % 58-86 % CD4 41 % 32-64 % CD8 38 % 15-40 CD3 1646 cells/L 550-2202 CD4 855 cells/L 365-1437 CD8 796 cells/L 171-846 4/8 H/S Ratio 1.1 >=0.9 CD4 Reviewed By See Comment 2 Comp Metabolic 05/02/2019 [facility] Sodium 136 mmol/L Normal 135-[address] [place] [address] [phone] Potassium 4.5 mmol/L Normal 3.5-5.0 Chloride 104 [...] Egfr 79.1 >60 3 CBC Auto 12/15/2018 [facility] White Blood 6.7 10^3/uL Normal 3.5-10.[address] [place] [address] [phone] Red Blood Count 4.64 10^6/uL Normal 3.70-4.87 [...] Cells % 0.2 HIV-1 Rna QNT 12/15/2018 [facility] HIV-1 Rna Undetected Undetected 4 By PCR Sli [address] (PCR) copies/[place] [address] [phone] Comp 12/15/2018 [facility] Sodium 139 mmol/L Normal 135-[address] [place] [address] [phone] Potassium 4.4 mmol/L Normal 3.5-5.0 Chloride 108 [...] performed using the epifanio HIV-1 test ([employer] with the epifanio 6800 System. This test has been modified from the centrifugal spinner's instructions. Its performance characteristics were determined by [facility] in a manner consistent with CLIA requirements. This test has not been cleared or approved by the U.S. Food and Drug Administration. Test Performed by: [facility] [address] [place] [address] Tube Tester: Yuri Tyler M.D. Ph.D.; CLIA# [id number] 2 RESULT: Reviewed by: Praneeth Y. Figueroa, M.D. ADDITIONAL INFORMATION Reference values implemented November 01, 2012. This test was developed using an analyte specific reagent. Its performance characteristics were determined by [facility] in a manner consistent with CLIA requirements. This test has not been cleared or approved by the U.S. Food and Drug Administration. Test Performed by: [facility] - [address] [address] Tube Tester: Yuri Tyler M.D. Ph.D.; CLIA# [id number] 3 Because ethnic data is not always [...] performed using the epifanio HIV-1 test ([employer] with the epifanio 6800 System. This test has been modified from the centrifugal spinner's instructions. Its performance characteristics were determined by [facility] in a manner consistent with CLIA requirements. This test has not been cleared or approved by the U.S. Food and Drug Administration. Test Performed by: [facility] - [facility] [address] [place] [address] 5 Because ethnic data is not always [...] Date Location Provider Dx Diagnosis Office Visit 05/12/2019 [facility] Luis Felipe Bolse Asymptomatic human 10:10a Bindu Branch M.D. immunodeficiency virus Diseases infection status Z79.899 Other mcfp (current) drug therapy Z23 Encounter for immunization K21.9 Gastro-esophageal reflux disease without esophagitis Office Visit 01/27/2019 11:00a [facility] Internal Jen Castañeda MD F33.2 Major depressv Medicine - Ccmob disorder, recurrent severe w/o psych features F41.9 Anxiety disorder, unspecified G47.00 Insomnia, unspecified Office Visit 12/15/2018 [facility] Luis Felipe Almaguer21 Asymptomatic human 2:20p For Bindu Branch M.D. immunodeficiency virus Diseases infection status Z79.899 Other mcfp (current) drug therapy Office Visit 12/15/2018 8:20a Jay Castañeda MD F33.2 Major depressv Medicine - Ccmob disorder, recurrent severe w/o psych features G47.00 Insomnia, unspecified R23.3 Spontaneous ecchymoses Assessments Date Code Description Provider 06/14/2019 H10.89 Other conjunctivitis Tayla Adamson M.D., [facility] 06/14/2019 K92.2 Gastrointestinal hemorrhage, unspecified Tayla Adamson M.D. 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 virus [HIV] infection st 05/12/2019 Z79.899 Other mcfp (current) drug therapy Luis Felipe Branch M.D. [...] infection st 12/15/2018 F33.2 Major depressive disorder, recurrent Jen Castañeda MD severe without psychoti 12/15/2018 Z79.899 Other mcfp (current) drug therapy Luis Felipe Branch M.D. 12/15/2018 G47.00 Insomnia, tamir Castañeda MD 12/15/2018 R23.3 Spontaneous ecchymoses Jen Castañeda MD Plan of Treatment Future Appointment(s):06/21/2019 11:00 am - Nati Antony M.D. at [facility] at [place]5108/07/2019 10:00 am - Tayla Adams[facility] M.D., FACP at [facility] - Tayla Adamson M.D., FACPH10.89 Other conjunctivitisNew Labs:CBC Auto Diff, Ordered: 06/14/19Comments:EYE REDNESS: This is not related to your headaches. It appears mildly irritated.Monitor and follow up with your eye doctor if it does not resolve.K92.2 Gastrointestinal hemorrhage, unspecifiedNew Labs:CBC Auto Diff, Ordered: 06/14/19New Xrays:CT Abd /Pel W/Wo, Ordered: 06/14/19Comments:BLOODY STOOLS:I suspect that your symptoms are due to diverticulosis. This is a situation in which a weakening in the wall of the intestine involves a small blood vessel. I think that the next step would be to do imaging of your belly. The best test for this is a CT scan with oral and iv contrast.It is possible that you may need to have a colonoscopy at some point in the future as well. If your abdominal symptoms increase in severity or intensity you should go to the Emergency Department.Referral:Renita Miranda MD, Zro[facility]efhsqsyuzbaP07 HeadacheComments: HEADACHE:Suspect multifactorial.Keep a headache journal, make specific note of any visual symptoms and timing of headaches. Avoid daily ibuprofen, naprosyn or acetaminophen use as this may lead to rebound headache symptoms. Nonpharmacologic strategies reviewed.Be aware that neck and upper back stiffness may contribute to a tension-type/muscular headache. Therefore try to change positions frequently and maintain good posture. Functional Status Description No Information Available Mental Status Description No Information Available Referrals Refer to Reason for Referral Status Appt Date Renita Miranda MD hematochezia Created [address] [place] [address] [phone] Family & Childrens Services Patient is aware to call and schedule Created [address] [place] [address] [phone] [facility] – [place] Sleep Clinic snoring, fatigue Sent [address] [place] [address] [phone] Nati Antony M.D. right wrist ganglion cyst Sent 06/21/2019 [address] [facility] [place] [address] [place] [address] [phone] Family & Childrens Services pt with depression and anxiety, worse Sent since her diagnosis of HIV in June [address] [place] [address] [phone] Melida Pagan, [employer] [facility] pt with MDD and some mood dysregulation Sent worsening since new diagnosis of HIV [address] [facility] [place] [address] [place] [address] [phone]
--- OUTSIDE RECORDS SUMMARY | 2019-07-09 18:58 | XMS REPORT | Continuity of Care Document ---
:1985 External Reference #:[id number] Author Name Tayla Adamson M.D., FACP (transmitted by agent of provider Gladys Contreras) Address [address] [place] [phone] Care Team Providers Name Role Phone Alirio Gregory MD - Internal Care Team Information [facility] Tj Campbell MD - Endocrinology, Care Team Information [facility] Diabetes & Metabolism [facility] [place] - Sleep Disorder Care Team Information [facility] Diagnostic Javier Choi MD - Care Team Information [employer] [phone] Otolaryngology Mario Molina MD - Care Team Information [employer] [phone] Ophthalmology Jen Castañeda M.D. - Family Medicine Care Team Information [employer] [phone] Problems Active Problems Provider Date Type 2 [...] yrs or fewer cigarettes/day) Smoking Status Reviewed: 06/07/19 Light tobacco smoker (10 for about 15 yrs or fewer cigarettes/day) Allergies, Adverse Reactions, Alerts Active Allergies Reaction Severity Comments Date NKDA 07/26/2018 Chocolate hives 11/05/2010 Inactive Allergies NKDA 11/05/2010 NKDA 08/31/2013 Medications Active Medications SIG Qnty Indications Ordering Date Provider Aripiprazole 1 by mouth daily 30tabs F41.9 Tayla Adamson, 06/07/2019 2mg Theresa, FACP Tablets Lamisil AF Defense apply to [...] Adamson, 06/22/2018 25mg Tablets twice a day Theresa, FACP Onetouch Finepoint check blood 100units Jen [...] 10/06/2016 Misc off for showers and dressing Onetouch Ultra 2 check blood 1units Jen Castañeda MD [...] CPT Code Status Date Vaccine Lot # 11884 Given 09/06/2018 Pneumonia Vaccine [id number] 99482 Given 06/21/2018 Influenza Virus Vaccine, Quadrivalent, Split, [id number] Preservative Free 90852 Given 06/21/2018 Pneumococcal Conjugate Vaccine 13 Valent For [id number] Intramuscular Use Vital Signs Date Vital Result Comment 06/07/2019 1:04pm Height 66 inches 5'6" Weight 220.00 lb Heart Rate 69 /min BP Systolic Sitting 112 mmHg BP Diastolic Sitting 69 mmHg O2 % BldC Oximetry 96 % BMI (Body Mass Index) 35.5 kg/m2 05/12/2019 9:59am Height 66 inches 5'6" Weight 225.00 lb Heart Rate 72 /min BP Systolic Sitting 120 mmHg BP Diastolic Sitting 64 mmHg Respiratory Rate 14 /min Body Temperature 97.6 F BMI (Body Mass Index) 36.3 kg/m2 Results Test Acquired Facility Test Result H/L Range Note Date Laboratory 06/07/2019 [facility] In House Hemoglobin A1c 5.7 5-7 test finding HIV-1 Rna QNT 05/02/2019 [facility] HIV-1 Rna Undetected Undetected 1 By PCR Sli [address] (PCR) copies/[place] [address] [phone] CD4/CD8 T-Cell 05/02/2019 [facility] Absolute CD45 2.10 thou/ mcL 0.82-2.[address] [place] [address] [phone] % CD3 79 % 58-86 % CD4 41 % 32-64 % CD8 38 % 15-40 CD3 1646 cells/L 550-2202 CD4 855 cells/L 365-1437 CD8 796 cells/L 171-846 4/8 H/S Ratio 1.1 >=0.9 CD4 Reviewed By See Comment 2 Comp Metabolic 05/02/2019 [facility] Sodium 136 mmol/L Normal 135-[address] [place] [address] [phone] Potassium 4.5 mmol/L Normal 3.5-5.0 Chloride 104 [...] Egfr 79.1 >60 3 CBC Auto 12/15/2018 [facility] White Blood 6.7 10^3/uL Normal 3.5-10.[address] [place] [address] [phone] Red Blood Count 4.64 10^6/uL Normal 3.70-4.87 [...] Cells % 0.2 HIV-1 Rna QNT 12/15/2018 [facility] HIV-1 Rna Undetected Undetected 4 By PCR Sli [address] (PCR) copies/[place] [address] [phone] Comp 12/15/2018 [facility] Sodium 139 mmol/L Normal 135-[address] [place] [address] [phone] Potassium 4.4 mmol/L Normal 3.5-5.0 Chloride 108 [...] performed using the epifanio HIV-1 test ([employer] with the epifanio 6800 System. This test has been modified from the signs and displays sales representative's instructions. Its performance characteristics were determined by [facility] in a manner consistent with CLIA requirements. This test has not been cleared or approved by the U.S. Food and Drug Administration. Test Performed by: [facility] [address] [place] [address] Systems Architect: Yuri Tyler M.D. Ph.D.; CLIA# [id number] 2 RESULT: Reviewed by: Praneeth Figueroa M.D. ADDITIONAL INFORMATION Reference values implemented November 01, 2012. This test was developed using an analyte specific reagent. Its performance characteristics were determined by [facility] in a manner consistent with CLIA requirements. This test has not been cleared or approved by the U.S. Food and Drug Administration. Test Performed by: [facility] - [address] [address] Systems Architect: Yuri Tyler M.D. Ph.D.; CLIA# [id number] 3 Because ethnic data is not always [...] performed using the epifanio HIV-1 test ([employer] with the epifanio 6800 System. This test has been modified from the signs and displays sales representative's instructions. Its performance characteristics were determined by [facility] in a manner consistent with CLIA requirements. This test has not been cleared or approved by the U.S. Food and Drug Administration. Test Performed by: [facility] [address] [place] [address] 5 Because ethnic data is not always [...] Location Provider Dx Diagnosis Office Visit 05/12/2019 [facility] Luis Felipe Ochoa Z21 Asymptomatic human 10:10a Bindu Branch M.D. immunodeficiency virus Diseases infection status Z79.899 Other retirement (current) drug therapy Z23 Encounter for immunization K21.9 Gastro-esophageal reflux disease without esophagitis Office Visit 01/27/2019 11:00a [facility] Internal Jen Castañeda MD F33.2 Major depressv Medicine - Ccmob disorder, recurrent severe w/o psych features F41.9 Anxiety disorder, unspecified G47.00 Insomnia, unspecified Office Visit 12/15/2018 [facility] Luis Felipe Ochoa Z21 Asymptomatic human 2:20p For Bindu Branch M.D. 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 virus [HIV] infection st 05/12/2019 Z79.899 Other batch mixer operator (current) drug therapy Luis Felipe Branch M.D. [...] MD severe without psychoti 12/15/2018 Z79.899 Other batch mixer operator (current) drug therapy Luis Felipe Branch M.D. 12/15/2018 G47.00 Insomnia, unspecified Jen Castañeda MD 12/15/2018 R23.3 Spontaneous ecchymoses Jen Castañeda MD Plan of Treatment Future Appointment(s):08/07/2019 10:00 am - Tayla Adamson M.D., FACP at [facility] - Tayla Adamson M.D., FACPL65.0 Telogen effluviumComments:HAIR LOSS:I suspect that this symptom is due to a benign condition called Telogen Effluvium in whichthe hair follicles cycle together instead of in the normal staggered fashion. Topical minoxadil (1-2%) can be effective: this is available OTC (brand name "Apolinar").F41.9 Anxiety disorder, unspecifiedNew Medication:Aripiprazole 2 mg - 1 by mouth dailyComments:ANXIETY: I understand that you are not certain if the sertraline has improved your anxiety. I recommend that you might benefit from the addition of a low dose of a mood stabilizer. I have sent an rx for Abilify to your pharmacy.We talked about counselling and the role of pharmacotherapy. I have given you some written information about resources in the community. I think you might really benefit from talk therapy.Referral:Family & Childrens Services, Counseling/ PsychFollow up:2 mcnpwdB52.33 Obstructive sleep apnea (adult) (pediatric) Comments:SLEEP APNEA:I think that you would benefit from a sleep study given your history of snoring and fatigue as well as your mother's condition.Referral: [facility] [place] [facility], Sleep Disord,Diag/UrquolM02.0 Tobacco useComments:TOBACCO USE: Do your best to limit how many cigarettes you smoke a day: cutting back counts! I fullysupport any and all your efforts to quit. We discussed different nicotine replacement systems (patches, gum, lozenges) medications like Chantix and bupropion and behavioral strategies like hypnosis. For further help or information you can call the [facility] Smokers Quit Line at 3-378-SQRevelationQUITS (615- [phone]), or [email or web address] Ganglion, right wristComments:GANGLION CYST :Today we talked about management of this problem. I understand that it has gotten bigger and impedes your range of motion, so you may need to have it aspirated. We will set up a referralto Dr. Madrigal:Nati Antony M.D. , Surgery,HandB36.0 Pityriasis versicolorNew Medication:Lamisil AF Defense 1 % - apply to affected area daily x 1 monthComments:SKIN DISCOLORATION (TINEA VERSICOLOR):This is a benign but cosmetic issue related to a superficial fungal infection. Use the Lamisil daily for one month. Your symptoms should continue to improve evenafter you have completed your course.E11.9 Type 2 diabetes mellitus without complicationsComments:DIABETES:You are very well controlled. Your last HA1c today was 5.7 which is ideal. I recommend that you continue to do what you are doing and take the medications that you are taking.Follow up:3 months, 20 min Goals 06/07/2019 - Tayla Adamson M.D., FACPE11.9 Type 2 diabetes mellitus without complicationsGoal Hemoglobin A1c is less than 7.0%. Goal Blood pressure is less than 130/85. Goal LDL (bad cholesterol) is less than 100. Functional Status Description No Information Available Mental Status Description No Information Available Referrals Refer to Reason for Referral Status Appt Date [facility] Children[facility] Services Created [address] [place] [address] [phone] [facility] [place] [facility] snoring, fatigue Sent [address] [place] [address] [phone] Nati Antony M.D. right wrist ganglion cyst Sent [address] [facility] [place] [address] [phone] [facility] Services pt with depression and anxiety, worse Sent since her diagnosis of HIV in June 2018 [address] [place] [address] [phone] Melida Pagan, DEAN pt with MDD and some mood dysregulation Sent worsening since new diagnosis of HIV [address] [facility] [place] [address] [phone]
[2019-07-09 20:59] VITALS: BP 118/66
== END 2019-07-09 20:55 | disposition home or self-care (01) ==
LOC: ED 17:57
DX: K62.5 Hemorrhage of anus and rectum (principal); R10.13 Epigastric pain; N20.0 Calculus of kidney; E11.9 Type 2 diabetes mellitus without complications; D64.9 Anemia, unspecified; F17.210 Nicotine dependence, cigarettes, uncomplicated; Z90.49 Acquired absence of other specified parts of digestive tract; Z79.4 Long term (current) use of insulin
CPT/HCPCS: 36415; 74176; 80053; 85025; 85610; 85730; 96374; 99282

== ENCOUNTER 2021-08-01 09:43 | Observation (INO) ==
[2021-08-01] MEDS ORDERED: Ondansetron 4 mg VIAL 2 MG/ML 2 ml VIAL IV ONE (10:15)
[2021-08-01] MEDS ORDERED: Morphine 4 MG/ML VIAL (1 ml) IV ONE ×2 (10:16→12:31)
[2021-08-01] MEDS ORDERED: Lactated Ringers 1000 ml BAG 1,000 ML IV ONE (10:21)
[2021-08-01 11:02] LABS: ABS Eosinophils 0.1 10^3/ul (0-0.6); ABS Lymphocytes 1.2 10^3/ul (1.0-4.8); ABS Monocytes 0.5 10^3/ul (0-0.8); ABS Neutrophils 9.6 10^3/ul (1.5-7.7); Eosinophil % 0.7 %; Hematocrit 34 % (35-47); Hemoglobin 11.4 g/dL (12.0-16.0); Lymphocyte % 10.5 %; Mean Corpuscular HGB Conc 33 g/dL (31-36); Mean Corpuscular Hemoglobin 27 pg (27-31); Mean Corpuscular Volume 80 fL (80-97); Mean Platelet Volume 8.6 fL (7.4-10.4); Platelet Count 275 10^3/uL (150-450); Red Blood Count 4.27 10^6 /uL (3.70-4.87); Red Cell Distribution Width 15 % (10-15); White Blood Count 11.4 10^3/uL (3.5-10.8)
[2021-08-01 11:19] LABS: Urine Appearance Cloudy; Urine Color Yellow
[2021-08-01 11:20] LABS: Urine Bilirubin Negative (Negative); Urine Blood 2+ (Negative); Urine Glucose Negative (Negative); Urine Ketones Negative (Negative); Urine Nitrite Negative (Negative); Urine Protein Negative (Negative); Urine Urobilinogen Negative (Negative); Urine pH 6 (5-9)
[2021-08-01 11:21] LABS: Albumin 4.2 g/dL (3.2-5.2); Albumin/Globulin Ratio 1.3 (1-3); C Reactive Protein 17.44 mg/L (<8.01); Globulin 3.2 g/dL (2-4); Potassium 4.1 mmol/L (3.5-5.0); Total Bilirubin 0.3 mg/dL (0.2-1.0); Total Protein 7.4 g/dL (6.4-8.9); eGFR CKD-EPI 51.6 (>60)
[2021-08-01 11:22] LABS: Urine Bacteria Absent (Absent); Urine Red Blood Cell 3+(>10/hpf) (Absent); Urine Squamous Epithelial Cell Present (Absent); Urine White Blood Cell 1+(6-10/hpf) (Absent)
[2021-08-01] MEDS ORDERED: Iodixanol (CONTRAST) 320 MG/ML 100 ML SDV IV ONE (11:27)
[2021-08-01] MEDS ORDERED: cefTRIAXone 2 GM ADDV.VIAL 2 GM in NS 0.9% 100 ml BAG 100 ML IVPB ONE (12:44)
[2021-08-01] MEDS ORDERED: HYDROmorphone 1 MG/1 ML SYRINGE IV ONE (13:43)
[2021-08-01] MEDS ORDERED: Dextrose 50% Syringe 50 ml 25 GM/50 ML SYRINGE IV PUSH PRN (13:46)
[2021-08-01] MEDS ORDERED: Lidocaine 2% PF 5 ML VIAL ONE (15:33)
[2021-08-01] MEDS ORDERED: Dexamethasone IV 4 MG/ML VIAL 1 ml VIAL ONE (15:33)
[2021-08-01] MEDS ORDERED: Midazolam 2 mg/2 ml VIAL 1 mg/ml 2 ml VIAL (2 mg) ONE (15:33)
[2021-08-01] MEDS ORDERED: Ondansetron 4 mg VIAL 2 MG/ML 2 ml VIAL ONE ×2 (15:33→19:24)
[2021-08-01] MEDS ORDERED: fentaNYL 100 mcg/2 ml 50 MCG/ML VIAL ONE (15:33)
[2021-08-01] MEDS ORDERED: Propofol 10 MG/ML 20 ML BTL ONE ×2 (15:33→16:42)
[2021-08-01] MEDS ORDERED: Naloxone 0.4 mg VIAL 0.4 mg/ml 1 ml VIAL IV PRN (16:34)
[2021-08-01] MEDS ORDERED: DiMENhydriNATE IV 50 mg/ml 1 ml VIAL IV PUSH PRN (16:34)
[2021-08-01] MEDS ORDERED: fentaNYL 100 mcg/2 ml 50 MCG/ML VIAL IV PRN (16:34)
[2021-08-01] MEDS ORDERED: Acetaminophen IV 1 GM/100ML 100 ML IV PRN (16:34)
[2021-08-01] MEDS ORDERED: Ondansetron 4 mg VIAL 2 MG/ML 2 ml VIAL IV PRN ×2 (16:34→19:22)
[2021-08-01] MEDS ORDERED: HYDROmorphone 1 MG/1 ML SYRINGE IV PRN (16:34)
[2021-08-01] MEDS ORDERED: Acetaminophen IV 1 GM/100ML 100 ML IV ONE (18:45)
[2021-08-01] MEDS: Lactated Ringers 1000 ml BAG 1,000 ML IV SCH (18:50)
[2021-08-02] MEDS: Lactated Ringers 1000 ml BAG 1,000 ML IV SCH (02:05)
[2021-08-02 06:06] LABS: ABS Lymphocytes 1.4 10^3/ul (1.0-4.8); ABS Monocytes 0.4 10^3/ul (0-0.8); ABS Neutrophils 7.5 10^3/ul (1.5-7.7); Eosinophil % 0.3 %; Hematocrit 33 % (35-47); Hemoglobin 10.9 g/dL (12.0-16.0); Mean Corpuscular HGB Conc 33 g/dL (31-36); Mean Corpuscular Hemoglobin 27 pg (27-31); Mean Corpuscular Volume 81 fL (80-97); Mean Platelet Volume 8.9 fL (7.4-10.4); Platelet Count 276 10^3/uL (150-450); Red Blood Count 4.08 10^6 /uL (3.70-4.87); Red Cell Distribution Width 15 % (10-15); White Blood Count 9.3 10^3/uL (3.5-10.8)
[2021-08-02 06:25] LABS: Calcium 8.7 mg/dL (8.6-10.3); Potassium 3.8 mmol/L (3.5-5.0); eGFR CKD-EPI 76.3 (>60)
[2021-08-02 07:58] VITALS: BP 119/57
[2021-08-02] MEDS ORDERED: NF: Bictegravir/Emtricit/Tenofov 1 TABLET PO SCH (09:00)
[2021-08-02] MEDS ORDERED: cefTRIAXone 1 gm/50 mL NS BAG 1 GM/50 ML BAG IVPB SCH (12:30)
== END 2021-08-02 11:30 | disposition short-term general hospital (02) ==
LOC: ED 09:43 → INTOOBSV 13:54 → EDHOLD 13:54 → SUATTDRO 13:54 → SSU 16:16
PROVIDERS: ADMIT Internal Medicine; ATTEND Internal Medicine

== ENCOUNTER 2024-04-01 18:00 | Observation (INO) ==
[2024-04-01] MEDS: Morphine 4 MG/ML VIAL (1 ml) IV ONE (19:37)
[2024-04-01] MEDS: Ondansetron 4 mg VIAL 2 MG/ML 2 ml VIAL IV ONE (19:37)
[2024-04-01] MEDS: Lactated Ringers 1000 ml BAG 1,000 ML IV ONE (19:42)
[2024-04-01 19:45] LABS: ABS Basophils 0.2 10^3/uL (0.0-0.1); ABS Eosinophils 0.2 10^3/uL (0.0-0.5); ABS Lymphocytes 2.4 10^3/uL (1.0-4.8); ABS Monocytes 0.7 10^3/uL (0.0-0.9); ABS Neutrophils 10.1 10^3/uL (1.5-7.6); Eosinophil % 1.4 %; Hematocrit 36.7 % (35-45); Hemoglobin 12.1 g/dL (11.5-14.3); Lymphocyte % 17.9 %; Mean Corpuscular Hemoglobin 28.6 pg (27-33); Mean Corpuscular Hgb Conc 33.1 g/dL (31-36); Mean Corpuscular Volume 86.2 fL (80-97); Mean Platelet Volume 8.6 fL (7.5-11.2); Platelet Count 309 10^3/uL (150-450); Red Blood Count 4.25 10^6/uL (3.63-4.92); Red Cell Distribution Width 13.6 % (12-17); White Blood Count 13.6 10^3/uL (3.8-11.8)
[2024-04-01 20:33] LABS: ALT 9 U/L (7-52); Albumin 4.2 g/dL (3.2-5.2); Albumin/Globulin Ratio 1.5 (1-3); Alkaline Phosphatase 44 U/L (35-149); Anion Gap 10 mmol/L (2-16); Blood Urea Nitrogen 21 mg/dL (6-24); C Reactive Protein 7.85 mg/L (<8.01); CO2 Carbon Dioxide 26 mmol/L (22-32); Calcium 9.8 mg/dL (8.6-10.3); Chloride 102 mmol/L (101-111); Creatinine, Serum 1.36 mg/dL (0.51-0.95); Globulin 2.8 g/dL (2-4); Glucose 101 mg/dL (70-100); Lipase 27 U/L (11.0-82.0); Sodium 138 mmol/L (135-145); Total Bilirubin 0.3 mg/dL (0.2-1.0); eGFR CKD-EPI 51.1 (>60)
[2024-04-01 20:35] LABS: HCG Pregnancy < 0.60 mIU/mL
[2024-04-01] MEDS: HYDROmorphone 1 MG/1 ML SYRINGE IV SLOW PU ONE (21:25)
[2024-04-01 23:33] LABS: Urine Appearance Extra Turbid; Urine Bilirubin Negative (Negative); Urine Blood 3+ (Negative); Urine Color Light-Yellow; Urine Glucose Negative (Negative); Urine Ketones Negative (Negative); Urine Nitrite Negative (Negative); Urine Protein Trace (Negative); Urine Specific Gravity 1.019 (1.002-1.030); Urine Urobilinogen Negative (Negative); Urine pH 7.5 (5.0-8.0)
[2024-04-02 00:09] LABS: Urine Bacteria Absent /HPF (Absent); Urine Red Blood Cell 3+(>10/hpf) /HPF (0-Trace); Urine Squamous Epithelial Cell Present /HPF (Absent); Urine White Blood Cell Trace(0-5/hpf) /HPF (0-Trace)
[2024-04-02] MEDS ORDERED: Polyethylene Glycol 3350 17 GM PACKET PO PRN (00:42)
[2024-04-02] MEDS ORDERED: Senna TAB 8.6 mg TAB PO PRN (00:42)
[2024-04-02] MEDS: HYDROmorphone 1 MG/1 ML SYRINGE IV SLOW PU ONE (00:44)
[2024-04-02] MEDS: cefTRIAXone 2 gm/50 mL D5W 2 GM/50 ML BAG IV ONE (00:44)
[2024-04-02] MEDS: Lactated Ringers 1000 ml BAG 1,000 ML IV ONE (01:15)
[2024-04-02] MEDS: Ondansetron 4 mg VIAL 2 MG/ML 2 ml VIAL IV PRN (01:17)
[2024-04-02] MEDS: HYDROmorphone 0.5 MG/0.5 ML SYRINGE IV PRN (03:35)
[2024-04-02] MEDS: HYDROmorphone 1 MG/1 ML SYRINGE IV PRN (05:48)
[2024-04-02] MEDS ORDERED: Midazolam 2 mg/2 ml VIAL 1 mg/ml 2 ml VIAL (2 mg) ONE (09:42)
[2024-04-02] MEDS ORDERED: fentaNYL 100 mcg/2 ml 50 MCG/ML VIAL ONE (09:42)
[2024-04-02] MEDS ORDERED: Lidocaine 2% PF 5 ML VIAL ONE ×2 (09:43→10:32)
[2024-04-02] MEDS ORDERED: Dexamethasone IV 4 MG/ML VIAL 1 ml VIAL ONE ×2 (09:43→10:32)
[2024-04-02] MEDS ORDERED: Ondansetron 4 mg VIAL 2 MG/ML 2 ml VIAL ONE ×2 (09:43→10:32)
[2024-04-02] MEDS ORDERED: Propofol 10 MG/ML 20 ML BTL ONE ×2 (09:43→10:32)
[2024-04-02] MEDS ORDERED: Iohexol 180 (CONTRAST) 10 ML SDV IV ONE (09:49)
[2024-04-02] MEDS ORDERED: Metoclopramide 5 MG/ML VIAL (10 mg) IV PRN (10:26)
[2024-04-02] MEDS ORDERED: Ondansetron 4 mg VIAL 2 MG/ML 2 ml VIAL IV PRN (10:26)
[2024-04-02] MEDS ORDERED: fentaNYL 100 mcg/2 ml 50 MCG/ML VIAL IV PRN (10:26)
[2024-04-02] MEDS ORDERED: Naloxone 0.4 mg VIAL 0.4 mg/ml 1 ml VIAL IV PRN (10:26)
[2024-04-02] MEDS ORDERED: NS 0.45% 1000 ml BAG 1,000 ML IV SCH (11:00)
[2024-04-02] MEDS: [UNRECOGNIZED DRUG - OTHER] PO SCH (12:13)
[2024-04-02] MEDS: Buffered Lidocaine 1% SYRIN 1 ml INTRADERM ONE (12:14)
[2024-04-02] MEDS: Acetaminophen IV 1 GM/100ML 1,000 MG/100 ML BAG IV ONE (12:14)
[2024-04-02] MEDS: Lactated Ringers 1000 ml BAG 1,000 ML IV SCH (12:15)
[2024-04-02] MEDS: Scopolamine 1 mg/72hr PATCH TRANSDERM ONE (12:15)
[2024-04-02] MEDS: Senna TAB 8.6 mg TAB PO SCH (12:31)
[2024-04-02] MEDS: DULoxetine DR 60 mg CAP PO SCH (12:31)
[2024-04-02 13:28] LABS: ABS Lymphocytes 0.6 10^3/uL (1.0-4.8); ABS Monocytes 0.2 10^3/uL (0.0-0.9); ABS Neutrophils 9.2 10^3/uL (1.5-7.6); Eosinophil % 0.3 %; Hematocrit 35.3 % (35-45); Hemoglobin 12.2 g/dL (11.5-14.3); Lymphocyte % 6.2 %; Mean Corpuscular Hemoglobin 29.9 pg (27-33); Mean Corpuscular Hgb Conc 34.4 g/dL (31-36); Mean Corpuscular Volume 86.7 fL (80-97); Mean Platelet Volume 8.2 fL (7.5-11.2); Platelet Count 255 10^3/uL (150-450); Red Blood Count 4.08 10^6/uL (3.63-4.92); Red Cell Distribution Width 13.4 % (12-17)
[2024-04-02 13:50] LABS: Calcium 8.7 mg/dL (8.6-10.3); Creatinine, Serum 1.1 mg/dL (0.51-0.95); Potassium 4.1 mmol/L (3.5-5.0)
[2024-04-02] MEDS: Lactulose 30 ml UDC ONE (17:18)
[2024-04-02] MEDS: Lactulose 30 ml UDC PO ONE (17:18)
[2024-04-02] MEDS: cefTRIAXone 1 gm/50 mL D5W 1 GM/50 ML BAG IV SCH (22:01)
[2024-04-03] MEDS ORDERED: Acetaminophen IV 1 GM/100ML 1,000 MG/100 ML BAG IV PRN (07:31)
[2024-04-03] MEDS: Acetaminophen IV 1 GM/100ML 1,000 MG/100 ML BAG IV SCH (08:49)
[2024-04-03 08:54] LABS: Calcium 9.2 mg/dL (8.6-10.3); Creatinine, Serum 1.14 mg/dL (0.51-0.95); Potassium 3.8 mmol/L (3.5-5.0); eGFR CKD-EPI 63.2 (>60)
[2024-04-03 13:55] VITALS: BP 143/64
== END 2024-04-03 16:17 | disposition home or self-care (01) ==
LOC: EDHOLD 18:00 → ED 18:00 → EDHOLD 04-02 02:51 → MEDTELE 04-02 03:30 → SSU 04-02 10:08
PROVIDERS: ADMIT Internal Medicine; ATTEND Internal Medicine